=== PATIENT | male | born 1945 | race Hispanic/Latino ===

== ENCOUNTER 2018-07-11 17:35 | Outpatient (CLI) | payer MEDICARE | END 2018-07-11 17:36 | disposition home or self-care (01) | LOC: RAD 17:35 ==

== ENCOUNTER 2018-07-11 19:05 | Inpatient (IN) | payer MEDICARE ==
[2018-07-11 19:37] VITALS: BMI 33.7
[2018-07-11 20:01] LABS: BASO # 0.02 K/mm3 (0.0-2.0); BASO % 0.3 % (0.0-3.0); EOS # 0.1 (0.0-0.7); EOS % 1.6 % (1.5-5.0); HEMOGLOBIN 16.4 g/dL (14.0-18.0); LYMPH # 1.5 (1.2-3.4); LYMPH % 21.5 % (22.0-35.0); MEAN CELL VOLUME 97.1 fl (80.0-105.0); MEAN CORPUSCULAR HEMOGLOBIN 33.7 pg (25.0-35.0); MEAN CORPUSCULAR HGB CONC 34.7 g/dl (31.0-37.0); MEAN PLATELET VOLUME 11.9 fl (7.0-11.0); MONO # 0.5 (0.1-0.6); RBC 4.87 10^6/uL (3.5-6.1); RED CELL DISTRIBUTION WIDTH 14.7 % (11.5-14.5)
[2018-07-11 20:11] LABS: ALB/GLOB RATIO 1.2 (1.1-1.8); ALBUMIN 4.6 g/dL (3.0-4.8); CALCIUM 9.4 mg/dL (8.4-10.5)
[2018-07-11 20:23] LABS: TROPONIN I 0.02 ng/mL
[2018-07-11 20:49] LABS: INR 1.16; PARTIAL THROMBOPLASTIN TIME 31.4 Seconds (26.9-38.3); PROTHROMBIN TIME 12.9 SECONDS (9.4-12.5)
--- NOTE | 2018-07-11 20:52 | ED PDOC ---
Arrival/HPI - General Chief Complaint: Lower Extremity Problem/Injury Time Seen by Provider: 07/11/18 19:17 Historian: Patient - History of Present Illness Narrative History of Present Illness (Text): 07/11/18 19:25 Joesph Vaca is a 72 year old male, whose past medical history includes pancreatic cancer, who presents to the Emergency department sent from [facility] for further evaluation due to a positive right lower leg DVT finding today. Patient reports associated right lower leg swelling. Patient denies any fever, chills, chest pain, shortness of breath, nausea, vomiting, diarrhea, urinary symptoms, back pain, neck pain, headache, dizziness, or any other complaints. Symptom Onset: Gradual Symptom Course: Unchanged Activities at Onset: Light Context: Home Past Medical History - Provider Review Nursing Documentation Reviewed: Yes - Infectious Disease Hx of Infectious Diseases: None - Tetanus Immunization Tetanus Immunization: Up to Date - Cardiac Hx Cardiac Disorders: No - Renal Hx Kidney Stones: Yes - Hematological/Oncological Hx Cancer: Yes (PANCREATIC tx with seeds and radiation dx 2 yrs ago) - Musculoskeletal/Rheumatological Hx Falls: No - Psychiatric Hx Depression: No Hx Emotional Abuse: No Hx Physical Abuse: No Hx Substance Use: No Other/Comment: abusing tranquilizers for back discomfort, as per pt - Surgical History Hx Orthopedic Surgery: Yes (B HIP REPLACEMENT NECK SX) Other/Comment: bilateral hip replacement, cervical neck sx,, lower back sxc l3 l4 l5, sx for scar tissue post lower back sx, right and left hip replacement, sx for stenosis to arms and wrists. bilateral knee replacement - Anesthesia Hx Anesthesia: No - Suicidal Assessment Feels Threatened In Home Enviroment: No Family/Social History - Physician Review Nursing Documentation Reviewed: Yes Family/Social History: Unknown Family HX Smoking Status: Never Smoked Hx Alcohol Use: No Hx Substance Use: No Allergies/Home Meds Allergies/Adverse Reactions: Allergies No Known Allergies Allergy (Verified 07/11/18 19:20) Home Medications: Home Meds Medication Instructions Recorded Confirmed Buprenorphine Hydrochloride/ 0.5 tab PO TID 04/23/13 04/23/13 [Suboxone 8 mg-2 mg] Clonazepam [Klonopin] 1 mg PO TID 04/23/13 04/25/13 Lorazepam [Ativan] 1 mg PO TID 01/06/14 01/06/14 QUEtiapine [SEROquel] 25 mg PO DAILY 04/23/13 04/23/13 Review of Systems - Physician Review All systems were reviewed & negative as marked: Yes - Review of Systems Constitutional: Normal. absent: Fevers Eyes: Normal ENT: Normal Respiratory: Normal. absent: SOB, Cough Cardiovascular: Other (+DVT). absent: Chest Pain Gastrointestinal: Normal. absent: Abdominal Pain, Diarrhea, Nausea, Vomiting Genitourinary Male: Normal. absent: Dysuria, Frequency, Hematuria, Urinary Output Changes Musculoskeletal: Normal. absent: Back Pain, Neck Pain Skin: Normal. absent: Rash Neurological: Normal. absent: Headache, Dizziness Endocrine: Normal Hemo/Lymphatic: Normal Psychiatric: Normal Physical Exam Vital Signs Reviewed: Yes Vital Signs Temp Pulse Resp BP Pulse Ox 07/11/18 19:25 98.3 F 72 18 178/73 H 96 Temperature: Afebrile Blood Pressure: Hypertensive Pulse: Regular Respiratory Rate: Normal Appearance: Positive for: Well-Appearing, Non-Toxic, Comfortable Pain Distress: None Mental Status: Positive for: Alert and Oriented X 3 - Systems Exam Head: Present: Atraumatic, Normocephalic Pupils: Present: PERRL Extroacular Muscles: Present: EOMI Conjunctiva: Present: Normal Mouth: Present: Moist Mucous Membranes Neck: Present: Normal Range of Motion Respiratory/Chest: Present: Clear to Auscultation, Good Air Exchange. No: Respiratory Distress, Accessory Muscle Use Cardiovascular: Present: Regular Rate and Rhythm, Normal S1, S2. No: Murmurs Abdomen: No: Tenderness, Distention, Peritoneal Signs Back: Present: Normal Inspection. No: CVA Tenderness, Midline Tenderness, Paraspinal Tenderness Upper Extremity: Present: Normal Inspection. No: Cyanosis, Edema Lower Extremity: Present: NORMAL PULSES, Normal ROM, Swelling (Right lower leg extremity swelling). No: Edema, Cyanosis, Deformity Neurological: Present: GCS=15, CN II-XII Intact, Speech Normal Skin: Present: Warm, Dry, Normal Color. No: Rashes Psychiatric: Present: Alert, Oriented x 3, Normal Insight, Normal Concentration Medical Decision Making ED Course and Treatment: 07/11/18 19:25 Impression: 72 year old male sent from [place] for positive right leg DVT today. Plan: -- EKG -- Chest X-ray -- Labs, troponin -- Heparin -- Reassess and disposition Prior Visits: Notes and results from previous visits were reviewed. Progress Notes: Reviewed EKG, NSR at 63 bpm. LAD. LBBBB. 07/11/18 20:30 Chest X-ray reviewed, shows no acute processes. 07/11/18 21:[address] Morin, who is aware and agrees with plan. Accepts pt in to hospitalist service. Pt will be admitted to [facility] for lower extremity DVT. vice president of product marketing notified. - Lab Interpretations Lab Results: PT 12.9 SECONDS (9.4-12.5) H 07/11/18 20:17 INR 1.16 07/11/18 20:17 APTT 31.4 Seconds (26.9-38.3) 07/11/18 20:17 Troponin I 0.02 ng/mL D 07/11/18 19:58 Total Bilirubin 1.1 mg/dL (0.2-1.3) 07/11/18 19:58 AST 51 U/L (17-59) 07/11/18 19:58 ALT 29 U/L (7-56) 07/11/18 19:58 Alkaline Phosphatase 64 U/L (38-126) 07/11/18 19:58 Total Protein 8.5 g/dL (5.8-8.3) H 07/11/18 19:58 Albumin 4.6 g/dL (3.0-4.8) 07/11/18 19:58 Globulin 3.9 gm/dL 07/11/18 19:58 Albumin/Globulin Ratio 1.2 (1.1-1.8) 07/11/18 19:58 I have reviewed the lab results: Yes - RAD Interpretation Radiology Orders: 07/11/18 19:26 CHEST PORTABLE [RAD] Stat Granulating Blender: ED Physician - EKG Interpretation Interpreted by ED Physician: Yes Type: 12 lead EKG - Scribe Statement The provider has reviewed the documentation as recorded by the Lisseth Bangura Provider Scribe Attestation: All medical record entries made by the Scribe were at my direction and personally dictated by me. I have reviewed the chart and agree that the record accurately reflects my personal performance of the history, physical exam, medical decision making, and the department course for this patient. I have also personally directed, reviewed, and agree with the discharge instructions and disposition. Disposition/Present on Arrival - Present on Arrival Any Indicators Present on Arrival: No History of DVT/PE: No History of Uncontrolled Diabetes: No Urinary Catheter: No History of Decub. Ulcer: No History Surgical Site Infection Following: None - Disposition Have Diagnosis and Disposition been Completed?: Yes Diagnosis: Deep vein blood clot of right lower extremity Disposition: HOSPITALIZED Disposition Time: 21:20 Condition: FAIR
[2018-07-11] MEDS ORDERED: Heparin25000 units/250ml 1/2NS 25,000 UNITS/250 ML BAG IV PRN (21:16)
[2018-07-11] MEDS ORDERED: BUPRENORPHINE HYDROCHLORIDE PO PRN (23:30)
[2018-07-11] MEDS ORDERED: NALOXONE PO PRN (23:30)
[2018-07-11] MEDS ORDERED: Sodium Chloride 0.9% 1,000 ML IV SCH (23:30)
[2018-07-11] MEDS ORDERED: Enoxaparin 120 mg Syringe SC SCH (23:45)
[2018-07-11] MEDS ORDERED: Iohexol 350 MG/100 ML VIAL ONE (23:52)
--- NOTE | 2018-07-11 23:57 | CP.PCM.HP ---
<Cordell Morin - Last Filed: 07/12/18 19:42> Meds Allergies/Adverse Reactions: Allergies Allergy/AdvReac Type Severity Reaction Status Date / Time No Known Allergies Allergy Verified 07/11/18 19:20 Results - Vital Signs Recent Vital Signs: Last Vital Signs Temp 98.3 F 07/11/18 19:25 Pulse 65 07/11/18 21:54 Resp 18 07/12/18 05:41 BP 146/70 07/11/18 21:54 Pulse Ox 96 07/11/18 21:54 - Labs Result Diagrams: 07/12/18 06:45 07/12/18 06:45 Labs: Laboratory Results - last 24 hr 07/11/18 07/11/18 07/11/18 19:58 19:58 20:17 WBC 7.0 RBC 4.87 Hgb 16.4 Hct 47.3 MCV 97.1 MCH 33.7 MCHC 34.7 RDW 14.7 H Plt Count 94 L MPV 11.9 H Neut % (Auto) 69.6 H Lymph % (Auto) 21.5 L Jun[place] % (Auto) 7.0 H Eos % (Auto) 1.6 Baso % (Auto) 0.3 Lymph # (Auto) 1.5 Jun[place] # (Auto) 0.5 Eos # (Auto) 0.1 Baso # (Auto) 0.02 Absolute Neuts (auto) 4.86 PT 12.9 H INR 1.16 APTT 31.4 Sodium 142 Potassium 5.0 Chloride 108 H Carbon Dioxide 23 Anion Gap 16 BUN 33 H Creatinine 1.5 Est GFR ( Amer) 56 Est GFR (Non-Af Amer) 46 Random Glucose 94 Calcium 9.4 Total Bilirubin 1.1 AST 51 ALT 29 Alkaline Phosphatase 64 Troponin I 0.02 D Total Protein 8.5 H Albumin 4.6 Globulin 3.9 Albumin/Globulin Ratio 1.2 Attending/Attestation - Attestation I have personally seen and examined this patient.: Yes I have fully participated in the care of the patient.: Yes I have reviewed all pertinent clinical information: Yes Notes (Text): Patient seen and examined with the residents, agree with above DVT of the RLE, most likely provoked given his history of malignancy and right knee replacement x2 CTA noted to have PE; does report increasing sob with exertion the past 2 weeks. Started on therapeutic Lovenox, interested in NOAC. Pancreatic cancer in remission, does not remember his oncologist's name Echo to evaluate for possible R heart strain. PT/OT. <Delon Jay - Last Filed: 07/13/18 05:13> History of Present Illness - History of Present Illness History of Present Illness: PGY-1 History and Physical for Dr. Morin Patient is a 72 year old male with PMHx prostate CA s/p chemo and radiation therapy, b/l TKA x2, chronic back pain, who presents sent from office for lower extremity swelling x1 month, found to have RLE DVT on ultrasound. Patient notes noticing increased RLE swelling and redness starting just over one month ago. He denies ever experiencing any pain in either lower extremity. Patient does note some RLE numbness, however he notes this is chronic from complications with one of his right knee replacements resulting in nerve damage, and consequently patient also notes having a foot drop on the right. Patient denies any fevers, chills, or palpitations. Denies any history of DVT/PE, any personal or family history of hypercoagulable disorders. Patient is fairly active, walks regularly on a treadmill and previously ran 8-10 miles/day prior to knee issues. He does state having increased shortness of breath over the past 2-3 weeks, though he attributes this to recent weight gain (approx 20 lbs over last several months) which he attributes to decreased physical activity from knee/back pain. Patient denies any chest pain or pleuritic pain. PMHx: prostate CA s/p chemo and radiation therapy (diagnosed 3 years ago, no longer receiving treatment as he was told CA was cured), b/l TKA x2 (complicated by prosthetic infections bilaterally requiring new knee replacement), chronic back pain (s/p vertebral fusion) Surgical history: TKA b/l x2, multiple vertebral fusions, spinal cord stimulator placement, carpal tunnel release All: NKA Medications: Medications reviewed as per JUN, will confirm Suboxone and Kl[facility] [place] [place] Social hx: Denies alcohol, drug use. Quit smoking 30 years ago. Retired [employer]. Lives in house with . Family hx: Denies family hx of DVT/PE, hypercoagulability, or otherwise PMD: Dr. Donaldson (used to follow with Dr. Lila Galeano who since retired) Psych, Heme/Onc - currently follows with psych for pain management, unsure of name. Unsure name of heme/onc physician. Present on Admission - Present on Admission Any Indicators Present on Admission: No Review of Systems - Constitutional Constitutional: Weight Gain (20 lb weight gain in past 2-3 months). absent: Chills, Fever, Increased Appetite, Weight Loss - EENT Eyes: absent: Change in Vision, Photophobia Nose/Mouth/Throat: Tongue Swelling. absent: Nasal Congestion, Nasal Discharge - Cardiovascular Cardiovascular: absent: Chest Pain, Chest Pain with Activity, Dyspnea, Lightheadedness, Palpitations, Rapid Heart Rate - Respiratory Respiratory: absent: Cough, Dyspnea, Wheezing, Chest Congestion - Gastrointestinal Gastrointestinal: absent: Abdominal Pain, Diarrhea, Nausea, Vomiting - Genitourinary Genitourinary: absent: Dysuria, Flank Pain - Musculoskeletal Musculoskeletal: Back Pain (chornic back pain), Numbness (chronic RLE numbness) - Integumentary Integumentary: Erythema, Swelling (RLE swelling, below knee) - Neurological Neurological: Numbness (chronic RLE numbness 2/2 prior nerve damage). absent: Dizziness, Focal Weakness, Headaches, Paresthesias, Weakness - Psychiatric Psychiatric: absent: Anxiety, Depression - Hematologic/Lymphatic Hematologic: absent: Easy Bleeding, Easy Bruising Past Patient History - Infectious Disease Hx of Infectious Diseases: None - Tetanus Immunizations Tetanus Immunization: Up to Date - Past Social History Smoking Status: Never Smoked - CARDIAC Hx Cardiac Disorders: No - RENAL Hx Kidney Stones: Yes - HEMATOLOGICAL/ONCOLOGICAL Hx Cancer: Yes (PANCREATIC tx with seeds and radiation dx 2 yrs ago) - MUSCULOSKELETAL/RHEUMATOLOGICAL Hx Falls: No - PSYCHIATRIC Hx Depression: No Hx Emotional Abuse: No Hx Physical Abuse: No Hx Substance Use: No Other/Comment: abusing tranquilizers for back discomfort, as per pt - SURGICAL HISTORY Hx Orthopedic Surgery: Yes (B HIP REPLACEMENT NECK SX) Other/Comment: bilateral hip replacement, cervical neck sx,, lower back sxc l3 l4 l5, sx for scar tissue post lower back sx, right and left hip replacement, sx for stenosis to arms and wrists. bilateral knee replacement - ANESTHESIA Hx Anesthesia: No Physical Exam - Constitutional Appears: Non-toxic, No Acute Distress - Head Exam Head Exam: ATRAUMATIC, NORMOCEPHALIC - Eye Exam Eye Exam: EOMI, Normal appearance - ENT Exam ENT Exam: Mucous Membranes Moist - Respiratory Exam Respiratory Exam: Clear to Auscultation Bilateral, NORMAL BREATHING PATTERN. absent: Accessory Muscle Use, Chest Wall Tenderness, Decreased Breath Sounds, Rales, Rhonchi, Wheezes, Respiratory Distress - Cardiovascular Exam Cardiovascular Exam: REGULAR RHYTHM, +S1, +S2 - GI/Abdominal Exam GI & Abdominal Exam: Normal Bowel Sounds, Soft. absent: Distended, Tenderness - Extremities Exam Extremities exam: Positive for: normal capillary refill, pedal pulses present. Negative for: calf tenderness, tenderness Additional comments: RLE edema, erythema, apparent cellulitic changes. Strong DP/PT pulses bilater ally. Vertical surgical incisions over bilateral knees. No significant temperature changes on right, RLE is neurovascularly intact. - Neurological Exam Neurological exam: Alert, CN II-XII Intact, Oriented x3 - Psychiatric Exam Psychiatric exam: Normal Affect, Normal Mood - Skin Skin Exam: Dry, Intact Results - Vital Signs Recent Vital Signs: Last Vital Signs Temp 98.3 F 07/11/18 19:25 Pulse 65 07/11/18 21:54 Resp 14 07/11/18 21:54 BP 146/70 07/11/18 21:54 Pulse Ox 96 07/11/18 21:54 - Labs Result Diagrams: 07/12/18 06:45 07/12/18 06:45 Labs: Laboratory Results - last 24 hr 07/11/18 07/11/18 07/11/18 19:58 19:58 20:17 WBC 7.0 RBC 4.87 Hgb 16.4 Hct 47.3 MCV 97.1 MCH 33.7 MCHC 34.7 RDW 14.7 H Plt Count 94 L MPV 11.9 H Neut % (Auto) 69.6 H Lymph % (Auto) 21.5 L [place] % (Auto) 7.0 H Eos % (Auto) 1.6 Baso % (Auto) 0.3 Lymph # (Auto) 1.5 Jun[place] # (Auto) 0.5 Eos # (Auto) 0.1 Baso # (Auto) 0.02 Absolute Neuts (auto) 4.86 PT 12.9 H INR 1.16 APTT 31.4 Sodium 142 Potassium 5.0 Chloride 108 H Carbon Dioxide 23 Anion Gap 16 BUN 33 H Creatinine 1.5 Est GFR ( Amer) 56 Est GFR (Non-Af Amer) 46 Random Glucose 94 Calcium 9.4 Total Bilirubin 1.1 AST 51 ALT 29 Alkaline Phosphatase 64 Troponin I 0.02 D Total Protein 8.5 H Albumin 4.6 Globulin 3.9 Albumin/Globulin Ratio 1.2 Assessment & Plan - Assessment and Plan (Free Text) Assessment: Right lower extremity DVT/Non-occlusive PE -Lower extremity doppler US 07/11: DVT R common femoral vein -CTA 07/11 - Preliminary read positive for non-occlusive right middle lobe PE. -CXR - f/u read -EKG - NSR at 63 bpm. LAD. LBBB. -Heparin drip started in ED - discontinued for switch to therapeutic lovenox -Lovenox 110mg SC Q12 -NS @ 100cc/hr -A1C/Lipid panel - f/u -INR/PTT WNL Thrombocytopenia -Platelets 94 - Denies ETOH abuse, liver disease -Lovenox still indicated for treatment of DVT -Monitor platelets -Monitor for signs of bleeding Chronic knee and back pain -Home meds resumed --Suboxone 0.5 tab PO TID prn pain --Klonopin 1mg TID prn back pain/anxiety --Day team confirm meds with [facility] in [place] -PT/OT PPx -Lovenox 110mg SC Q12 -SCDs contraindicated for DVT -Regular diet Assessment and plan discussed with Dr. Mikel Jay, PGY-1
[2018-07-12] MEDS: Enoxaparin 120 mg Syringe SC SCH ×2 (00:46→13:31)
[2018-07-12 07:12] LABS: BASO # 0.02 K/mm3 (0.0-2.0); BASO % 0.4 % (0.0-3.0); EOS # 0.1 (0.0-0.7); EOS % 2.3 % (1.5-5.0); HEMOGLOBIN 14.8 g/dL (14.0-18.0); LYMPH # 1.7 (1.2-3.4); LYMPH % 29.5 % (22.0-35.0); MEAN CELL VOLUME 98.2 fl (80.0-105.0); MEAN CORPUSCULAR HGB CONC 33.6 g/dl (31.0-37.0); MEAN PLATELET VOLUME 11.7 fl (7.0-11.0); MONO # 0.4 (0.1-0.6); RBC 4.48 10^6/uL (3.5-6.1); RED CELL DISTRIBUTION WIDTH 14.5 % (11.5-14.5); WHITE BLOOD COUNT 5.7 10^3/uL (4.5-11.0)
[2018-07-12 07:31] LABS: ALB/GLOB RATIO 1.1 (1.1-1.8); ALBUMIN 3.9 g/dL (3.0-4.8)
--- NOTE | 2018-07-12 09:23 | CT ---
Date of service: 07/12/2018 PROCEDURE: CT Chest with contrast (Pulmonary Angiogram) HISTORY: RLE DVT, r/o PE COMPARISON: None available. TECHNIQUE: Axial computed tomography images were obtained of the chest in the pulmonary arterial phase of enhancement. Coronal and sagittal reformatted images were created and reviewed. Intravenous contrast dose: Radiation dose: Total exam DLP = 606.03 mGy-cm. This CT exam was performed using one or more of the following dose reduction techniques: Automated exposure control, adjustment of the mA and/or kV according to patient size, and/or use of iterative reconstruction technique. FINDINGS: PULMONARY ARTERIES: Right middle lobe segmental branch nonocclusive acute pulmonary emboli. AORTA: No acute findings. No thoracic aortic aneurysm. No aortic atherosclerotic calcification or mural plaque present. LUNGS: Bibasilar interstitial changes. PLEURAL SPACES: Unremarkable. No effusion or pneumothorax. HEART: Cardiomegaly.. No significant pericardial effusion. LYMPH NODES: No lymphadenopathy. BONES, CHEST WALL: Unremarkable. No fracture or destructive lesion OTHER FINDINGS: 6 millimeter left renal calculus and 2.5 centimeter left renal cyst. IMPRESSION: Right middle lobe segmental branch nonocclusive acute pulmonary emboli.
--- NOTE | 2018-07-12 09:27 | RAD ---
Date of service: 07/11/2018 HISTORY: dvt rt leg COMPARISON: 04/23/2013 TECHNIQUE: 1 view obtained. FINDINGS: LUNGS: No active pulmonary disease. PLEURA: No significant pleural effusion identified, no pneumothorax apparent. CARDIOVASCULAR: No aortic atherosclerotic calcification present. Normal cardiac size. No pulmonary vascular congestion. OSSEOUS STRUCTURES: No significant abnormalities. VISUALIZED UPPER ABDOMEN: Normal. OTHER FINDINGS: None. IMPRESSION: No active disease.
--- NOTE | 2018-07-12 10:10 | CARD ---
APPROVED REPORT Date of service: 07/11/2018 EKG Measurement Heart [id number] <Conclusion> Normal sinus rhythm Left bundle branch block Somatic Tremors. Abnormal ECG
[2018-07-12] MEDS ORDERED: Barium Sulfate Susp 2.1% w/v, 2.0% w/w 450 mL Bottle PO ONE (12:18)
--- NOTE | 2018-07-12 12:18 | CON ---
DATE OF CONSULTATION: 07/12/2018 PULMONARY CONSULTATION REASON FOR PULMONARY CONSULTATION: Pulmonary embolism. REFERRING PHYSICIAN: Dr. Endy Donaldson. SOURCE OF HISTORY: History is obtained via discussion with Dr. Donaldson. I have also reviewed the chart at length, and discussed the case with the patient at length. HISTORY OF PRESENT ILLNESS: The patient is a 72-year-old male, with past medical history significant for prostate cancer, multiple orthopedic surgeries, chronic back/disk problems, who presents to [facility] with a 4-week history of increasing swelling and redness of his right lower extremity. In addition to the above, the patient also states to dyspnea on exertion for the past 2 weeks. The patient is not short of breath at rest. There is no history of cough or sputum production. There is no history of chest pain, coughing up of blood, or chest pain - brought on with deep respirations. There is no history of temperatures, chills, or infectious exposure. There is no history of night sweats, weight loss, or appetite change prior to the above events. No history of calf pains. No history of syncope or diaphoresis. No history of recent travel or trauma. REVIEW OF SYSTEMS: No history of nausea, vomiting, or diarrhea. No acute urinary symptoms. Rest of the review of systems is negative. ALLERGIES: NO KNOWN ALLERGIES. SOCIAL HISTORY: Positive for former tobacco usage. No alcohol. FAMILY HISTORY: No inheritable diseases. No history of clotting disorders. HOME MEDICATIONS: Include Ativan, and Klonopin. PHYSICAL EXAMINATION: GENERAL: The patient appears comfortable at rest. He is not short of breath. He is not using accessory muscles for breathing. VITAL SIGNS: (Last noted in the computer): Temperature is 98.4, pulse 69, respirations 18, blood pressure 160/71. Oxygen saturation on room air is 95%. HEENT: Normocephalic, atraumatic. No JVD. CARDIOVASCULAR: Positive S1, S2. No S3 gallop. LUNGS: Decreased breath sounds at the bases. No rhonchi. No wheezing. EXTREMITIES: There is mild swelling and erythema to the patient's lower right extremity. There is no swelling in the left lower extremity. There is no cyanosis or clubbing. Calves are nontender to palpation. GASTROINTESTINAL: Abdomen is soft, nontender, and nondistended. Bowel sounds are positive. SKIN: No acute rash. NEUROLOGIC: Exam limited at the present time. PERTINENT LABORATORY DATA: CT scan of the chest was done last night as an angiogram protocol. There is an acute pulmonary embolism noted to the right middle lobe. There are also minimal bibasilar changes. Doppler ultrasound was also done of the right lower extremity. It is positive for right lower extremity deep venous thrombosis. CBC: White count 5.7K, hemoglobin 14.8, hematocrit 44, platelets of 87,000. Complete metabolic profile: Potassium 5.1, BUN 34, creatinine 1.6. Rest of the metabolic profile is within normal limits. IMPRESSION: 1. Right middle lobe pulmonary embolism. 2. Right lower extremity deep venous thrombosis. 3. Mild renal insufficiency. 4. Thrombocytopenia. PLAN: Again, I did discuss the case with Dr. Donaldson. I have also reviewed the chart at length, and discussed the case with the patient at length. The patient presents to [facility] with main complaint of increasing swelling and redness of his right lower extremity for the past 4 weeks. In addition, the patient also complains of increasing dyspnea on exertion for the past 2 weeks. He offers no other pulmonary symptoms. I did review the CT scan of the chest - done as an angiogram protocol. There is an acute pulmonary embolism noted to the right middle lobe. As above, Doppler ultrasound was also positive for deep venous thrombosis. The patient has been placed on therapeutic Lovenox. Consultation with Dr. Sterling (Hematology/Oncology) has been ordered. At this point in time, the patient appears hemodynamically stable. In addition, there is no significant alveolar-arterial gradient. Echocardiogram has been ordered. I will check that when feasible. The patient does state to feeling better this morning, and is clinically improved. Additional pulmonary intervention will be based on the clinical status of the patient. I will discuss the above with the attending physician. Thank you very much for this pulmonary consultation. Damian Benitez MD [facility]
--- NOTE | 2018-07-12 13:48 | CP.PCM.PN ---
<Jd Peralta - Last Filed: 07/12/18 16:15> Subjective - Date & Time of Evaluation Date of Evaluation: 07/12/18 Time of Evaluation: 10:00 - Subjective Subjective: Jd Peralta DO PGY1 - Internal Medicine Boiler Coverer - Hospitalist Progress Note Patient was seen and evaluated at bedside this morning No acute events reported overnight. Patient complains of mild shortness of breath, denies cp, palpitations, abd pain, n/v/d/c, mucosal bleed Findings discussed w/ patient Objective - Vital Signs/Intake and Output Vital Signs (last 24 hours): Temp Pulse Resp BP Pulse Ox 98.4 F 69 18 160/71 H 95 07/11/18 22:40 07/11/18 22:40 07/12/18 05:41 07/11/18 22:40 07/11/18 22:40 Intake and Output: 07/12/18 07/12/18 06:59 18:59 Intake Total 120 Output Total 950 Balance -830 - Medications Medications: Current Medications Acetaminophen (Tylenol 325mg Tab) 650 mg PO Q6 PRN PRN Reason: Fever >100.4 F Clonazepam (Klonopin) 1 mg PO TID PRN PRN Reason: Anxiety Last Admin: 07/12/18 10:06 Dose: 1 mg Enoxaparin Sodium (Lovenox) 110 mg SC Q12H MARGARITA; Protocol Last Admin: 07/12/18 00:46 Dose: 110 mg Escitalopram Oxalate (Lexapro) 20 mg PO DAILY MARGARITA Sodium Chloride (Sodium Chloride 0.9%) 1,000 mls @ 100 mls/hr IV .Q10H MARGARITA Last Admin: 07/12/18 00:44 Dose: 100 mls/hr Non-Formulary Medication (Buprenorphine Hydrochloride/ [Suboxone 8 Mg-2 Mg]) 0.5 tab PO TID PRN PRN Reason: Pain, moderate (4-7) - Labs Labs: 07/12/18 06:45 07/12/18 06:45 PT 12.9 SECONDS (9.4-12.5) H 07/11/18 20:17 INR 1.16 07/11/18 20:17 APTT 31.4 Seconds (26.9-38.3) 07/11/18 20:17 - Constitutional Appears: Well, Non-toxic, No Acute Distress - Head Exam Head Exam: ATRAUMATIC, NORMOCEPHALIC - Eye Exam Eye Exam: EOMI, PERRL - Respiratory Exam Respiratory Exam: Clear to Ausculation Bilateral, NORMAL BREATHING PATTERN - Cardiovascular Exam Cardiovascular Exam: RRR. absent: Tachycardia, Murmur - GI/Abdominal Exam GI & Abdominal Exam: Soft. 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 Admitted for management of DVT/PE. RLE DVT + PE 07/11 Duplex LE Outpt - Confirmed DVT - R Common Femoral Vein 07/11 CT Angio - RML Segmental Branch Acute Nonocclusive PE Given Heparin Bolus in ED Currently on therapeutic Lovenox 110mg Q12 ECHO pending Heme/Onc Consulted Reccs pending Pulmonology Consulted New Onset LBBB Initial Troponin 0.02 Echocardiogram Results pending A1C 5.4 / Lipid panel wnl Thrombocytopenia PLT 87 <--94 No complaints of mucosal bleeding; PT/PTT INR wnl Continue Monitoring PLT Continue Monitoring s/s bleeding JULES vs CKD BUN/Cr 34/1.6 Currently on 100cc/hr IVF HTN No prior history; Continue Monitoring Hx Anxiety/ Mood Disorder Resume home Lexapro 20 Daily Hx Chronic Back Pain Suboxone 8/2 1tab TID Verified w/ [facility] Non-Formulary Here - Patient can bring from home and ID w/ inpt pharmacy GI/DVT PPX GI not indicated Lovenox as above Patient was seen, examined, and discussed with attending physician Dr. Bree Peralta DO PGY1 - Internal Medicine Boiler Coverer - Hospitalist Progress Note <Bree Peralta R - Last Filed: 07/13/18 14:02> Objective - Vital Signs/Intake and Output Vital Signs (last 24 hours): Temp Pulse Resp BP Pulse Ox 97.1 F L 53 L 18 122/70 98 07/13/18 06:00 07/13/18 06:00 07/13/18 06:00 07/13/18 06:00 07/13/18 06:00 Intake and Output: 07/13/18 07/13/18 06:59 18:59 Intake Total 0 Output Total 600 Balance -600 - Medications Medications: Current Medications Acetaminophen (Tylenol 325mg Tab) 650 mg PO Q6 PRN PRN Reason: Fever >100.4 F Clonazepam (Klonopin) 1 mg PO TID PRN PRN Reason: Anxiety Last Admin: 07/13/18 08:03 Dose: 1 mg Enoxaparin Sodium (Lovenox) 110 mg SC Q12H MARGARITA; Protocol Last Admin: 07/13/18 13:29 Dose: 110 mg Escitalopram Oxalate (Lexapro) 20 mg PO DAILY MARGARITA Last Admin: 07/13/18 11:26 Dose: 20 mg Home Med (Home Med) 1 unit SL TID MARGARITA Last Admin: 07/13/18 11:26 Dose: 1 unit - Labs Labs: 07/13/18 06:00 07/13/18 06:00 PT 12.9 SECONDS (9.4-12.5) H 07/11/18 20:17 INR 1.16 07/11/18 20:17 APTT 31.4 Seconds (26.9-38.3) 07/11/18 20:17 Attending/Attestation - Attestation I have personally seen and examined this patient.: Yes I have fully participated in the care of the patient.: Yes I have reviewed all pertinent clinical information, including history, physical exam and plan: Yes Notes (Text): Patient seen and examined by me with resident at approximately 10:30 AM on 07/12/18. Case including HPI, physical exam, and assessment and plan discussed with resident. Agree with above with following additions/corrections. Patient is 72-year-old male with past medical history significant for prostate cancer status post prostatectomy, bilateral knee replacements, and chronic back pain that presented to the emergency room from his doctor's office for right lower extremity DVT found on ultrasound. Patient states he is feeling ok. Complains of low back pain. Denies any shortness of breath while at rest. No pain in his lower extremities. Patient feels the color in his right lower extremity has improved. Patient denies any chest pain or palpitations. No nausea, vomiting, or abdominal pain. No headaches or dizziness. No fevers or chills. No dysuria. Physical exam: General: Awake and alert lying in bed in no acute distress. HEENT: Normocephalic, atraumatic. Extraocular muscles intact, pupils equal and reactive, no scleral icterus. Oropharynx is pink and moist. No pharyngeal erythema or exudate appreciated. Neck is supple. Cardiovascular: Regular rhythm. Normal S1 and S2. No murmurs, rubs, or gallops appreciated Pulmonary: Normal respiratory effort. Decreased breath sounds. No rhonchi, rales or wheezing appreciated. Gastrointestinal: Soft, nondistended. Nontender. Positive bowel sounds all 4 q uadrants. No guarding. Musculoskeletal: Moves all extremities. Bilateral lower extremities with edema, right worse than left. Central nervous system: AAOx3. CN 2-12 grossly intact Dermatologic: Skin warm and dry. Bilateral lower extremities with dry, scaly skin. Venous stasis color changes right lower extremity. Assessment and plan: Patient is 72-year-old male with past medical history significant for prostate cancer status post prostatectomy, bilateral knee replacements, and chronic back pain that presented to the emergency room from his doctor's office for right lower extremity DVT found on ultrasound. 1. Right lower extremity DVT. Right middle lobe nonocclusive acute PE. Pulmonary recommendations appreciated. Pending hem/onc recommendations. Continue therapeutic Lovenox. 2D echo results pending. CTA chest per radiologist showed right middle lobe segmental branch nonocclusive acute pulmonary emboli. Bilateral lower extremity venous dopplers per radiologist showed adherent hypoec hoic acute thrombus in the distal right common femoral vein extending into the right femoral vein origin. 2. Dyspnea. Secondary to #1. Continue with therapeutic lovenox. 2D echo pending. Continue with O2 via nasal cannula as needed. 3. Thrombocytopenia. Appears chronic. Also had thrombocytopenia in 2014. No signs of acute bleeding. Hem/onc consulted, pending recommendations. 4. JULES. ?CKD. Continue with IV fluids. Follow up repeat labs in AM. 5. Chronic back pain. On suboxone at home. Confirmed with patient's pharmacy. Continue home medication 6. Depression and anxiety. Continue Lexapro. Continue Klonopin as needed. 7. DVT prophylaxis. On therapeutic lovenox. Case discussed in detail with the patient regarding current diagnosis and treatment plan. All questions answered.
--- NOTE | 2018-07-12 16:13 | CP.PCM.CON ---
History of Present Illness - History of Present Illness History of Present Illness: Jewel Ragsdalemary PGY2 - Heme/Onc Consult Note for Dr. Sterling Consulted Reason: DVT HPI: 72 year old male with past medical history of prostate cancer s/p seeding and radiation, chronic back pain s/p multiple disc infusions, s/p pain management placement of nerve stimulator s/p 6 months prior, bilateral TKA x 2 (s/p 3 and 4 years) who presented to [facility] with right lower extremity swelling and evidence of right femoral vein DVT. Patient was worked up in ED and found to have CTA showing right middle lobe segmental non-occlusive pulmonary embolus. Patient was placed on therapeutic lovenox. Patient indicates that he has a signficiant history of poor ambulation for the past 6 months to a year secondary to chronic back pain and knee problems for which he has suffered with for some time. Patient indicates he spends up to 10 hours sitting on his couch watching tv with minimal movement during the day. He indicates he is still able to ambulate without assistance of cane or walker. He denies any previous DVT, PE, family history of DVT or PE or personal history of blood disorders. He reports he has not fallen up with his urologist responsible for following his prostate for the past 2 years. Patient reports shortness of breath, fatigue, back and knee pain as well as right lower extremity swelling and pain. He reports history of left foot drop secondary to back pain history. 12 point ROS benign other than mentioned in HPI PMHx: prostate cancer s/p seeding and radiation, b/l TKA x2 (complicated by prosthetic infections bilaterally requiring new knee replacement), chronic back pain (s/p vertebral fusion) Surgical history: TKA b/l x2, multiple vertebral fusions, spinal cord stimulator placement, carpal tunnel release All: NKDA Medications: MAR reviewed SOCHX: Denies alcohol, drug use. Quit smoking 30 years ago. 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 Lives in house with in [facility]. FMH: Denies family hx of DVT/PE, hypercoagulability, or otherwise PMD: Dr. Endy Donaldson Review of Systems - Review of Systems All systems: reviewed and no additional remarkable complaints except (as mentioned in HPI) Past Patient History - Infectious Disease Hx of Infectious Diseases: None - Tetanus Immunizations Tetanus Immunization: Up to Date - Past Social History Smoking Status: Never Smoked - CARDIAC Hx Cardiac Disorders: No - PULMONARY Hx Respiratory Disorders: No - NEUROLOGICAL Hx Neurological Disorder: No - HEENT Hx HEENT Problems: No - RENAL Hx Kidney Stones: Yes - ENDOCRINE/METABOLIC Hx Endocrine Disorders: No - HEMATOLOGICAL/ONCOLOGICAL Hx Cancer: Yes (PANCREATIC tx with seeds and radiation dx 2 yrs ago) - INTEGUMENTARY Hx Dermatological Problems: No - MUSCULOSKELETAL/RHEUMATOLOGICAL Hx Falls: No - GASTROINTESTINAL Hx Gastrointestinal Disorders: No - GENITOURINARY/GYNECOLOGICAL Hx Genitourinary Disorders: No - PSYCHIATRIC Hx Depression: No Hx Emotional Abuse: No Hx Physical Abuse: No Hx Substance Use: No Other/Comment: abusing tranquilizers for back discomfort, as per pt - SURGICAL HISTORY Hx Orthopedic Surgery: Yes (B HIP REPLACEMENT NECK SX) Other/Comment: bilateral hip replacement, cervical neck sx,, lower back sxc l3 l4 l5, sx for scar tissue post lower back sx, right and left hip replacement, sx for stenosis to arms and wrists. bilateral knee replacement - ANESTHESIA Hx Anesthesia: No Meds Allergies/Adverse Reactions: Allergies Allergy/AdvReac Type Severity Reaction Status Date / Time No Known Allergies Allergy Verified 07/11/18 19:20 - Medications Medications: Current Medications Acetaminophen (Tylenol 325mg Tab) 650 mg PO Q6 PRN PRN Reason: Fever >100.4 F Clonazepam (Klonopin) 1 mg PO TID PRN PRN Reason: Anxiety Last Admin: 07/12/18 10:06 Dose: 1 mg Enoxaparin Sodium (Lovenox) 110 mg SC Q12H MARGARITA; Protocol Last Admin: 07/12/18 13:31 Dose: 110 mg Escitalopram Oxalate (Lexapro) 20 mg PO DAILY MARGARITA Last Admin: 07/12/18 13:31 Dose: 20 mg Sodium Chloride (Sodium Chloride 0.9%) 1,000 mls @ 100 mls/hr IV .Q10H MARGARITA Last Admin: 07/12/18 00:44 Dose: 100 mls/hr Non-Formulary Medication (Buprenorphine Hydrochloride/ [Suboxone 8 Mg-2 Mg]) 0.5 tab PO TID PRN PRN Reason: Pain, moderate (4-7) Physical Exam - Constitutional Appears: No Acute Distress - Head Exam Head Exam: ATRAUMATIC, NORMOCEPHALIC - Eye Exam Eye Exam: EOMI, PERRL - ENT Exam ENT Exam: Mucous Membranes Moist - Neck Exam Neck exam: Positive for: Full Rom - Respiratory Exam Respiratory Exam: Clear to Auscultation Bilateral, NORMAL BREATHING PATTERN - Cardiovascular Exam Cardiovascular Exam: REGULAR RHYTHM, +S1, +S2 - GI/Abdominal Exam GI & Abdominal Exam: Normal Bowel Sounds, Soft. absent: Distended, Firm, Guarding - Extremities Exam Extremities exam: Positive for: calf tenderness (right lower exrtemity ) Additional comments: right lower extremity swelling with mild erythema bilateral surgical scars on anterior knees - Back Exam Back exam: paraspinal tenderness, tenderness - Neurological Exam Neurological exam: Alert, CN II-XII Intact, Oriented x3 Additional comments: motor and sensory grossly intact - Psychiatric Exam Psychiatric exam: Normal Affect, Normal Mood - Skin Skin Exam: Dry, Warm Results - Vital Signs Recent Vital Signs: Last Vital Signs Temp 97.3 F L 07/12/18 06:00 Pulse 57 L 07/12/18 06:00 Resp 198 H 07/12/18 06:00 BP 135/82 07/12/18 06:00 Pulse Ox 97 07/12/18 06:00 - Labs Result Diagrams: 07/12/18 06:45 07/12/18 06:45 Labs: Laboratory Results - last 24 hr 07/11/18 07/11/18 07/11/18 19:58 19:58 20:17 WBC 7.0 RBC 4.87 Hgb 16.4 Hct 47.3 MCV 97.1 MCH 33.7 MCHC 34.7 RDW 14.7 H Plt Count 94 L MPV 11.9 H Neut % (Auto) 69.6 H Lymph % (Auto) 21.5 L [place] % (Auto) 7.0 H Eos % (Auto) 1.6 Baso % (Auto) 0.3 Lymph # (Auto) 1.5 [place] # (Auto) 0.5 Eos # (Auto) 0.1 Baso # (Auto) 0.02 Absolute Neuts (auto) 4.86 PT 12.9 H INR 1.16 APTT 31.4 Sodium 142 Potassium 5.0 Chloride 108 H Carbon Dioxide 23 Anion Gap 16 BUN 33 H Creatinine 1.5 Est GFR ( Amer) 56 Est GFR (Non-Af Amer) 46 Random Glucose 94 Hemoglobin A1c Calcium 9.4 Total Bilirubin 1.1 AST 51 ALT 29 Alkaline Phosphatase 64 Troponin I 0.02 D Total Protein 8.5 H Albumin 4.6 Globulin 3.9 Albumin/Globulin Ratio 1.2 Triglycerides Cholesterol LDL Cholesterol Direct HDL Cholesterol Carcinoembryonic Ag 07/12/18 07/12/18 07/12/18 06:45 06:45 06:45 WBC 5.7 RBC 4.48 Hgb 14.8 Hct 44.0 MCV 98.2 MCH 33.0 MCHC 33.6 RDW 14.5 Plt Count 87 L MPV 11.7 H Neut % (Auto) 60.8 Lymph % (Auto) 29.5 [place] % (Auto) 7.0 H Eos % (Auto) 2.3 Baso % (Auto) 0.4 Lymph # (Auto) 1.7 [place] # (Auto) 0.4 Eos # (Auto) 0.1 Baso # (Auto) 0.02 Absolute Neuts (auto) 3.46 PT INR APTT Sodium 142 Potassium 5.1 H Chloride 106 Carbon Dioxide 27 Anion Gap 14 BUN 34 H Creatinine 1.6 H Est GFR ( Amer) 52 Est GFR (Non-Af Amer) 43 Random Glucose 89 Hemoglobin A1c 5.4 Calcium 9.0 Total Bilirubin 1.2 AST 44 ALT 31 Alkaline Phosphatase 56 Troponin I Total Protein 7.4 Albumin 3.9 Globulin 3.5 Albumin/Globulin Ratio 1.1 Triglycerides 82 Cholesterol 153 LDL Cholesterol Direct 108 HDL Cholesterol 27 L Carcinoembryonic Ag 07/12/18 12:00 WBC RBC Hgb Hct MCV MCH MCHC RDW Plt Count MPV Neut % (Auto) Lymph % (Auto) [place] % (Auto) Eos % (Auto) Baso % (Auto) Lymph # (Auto) [place] # (Auto) Eos # (Auto) Baso # (Auto) Absolute Neuts (auto) PT INR APTT Sodium Potassium Chloride Carbon Dioxide Anion Gap BUN Creatinine Est GFR ( Amer) Est GFR (Non-Af Amer) Random Glucose Hemoglobin A1c Calcium Total Bilirubin AST ALT Alkaline Phosphatase Troponin I Total Protein Albumin Globulin Albumin/Globulin Ratio Triglycerides Cholesterol LDL Cholesterol Direct HDL Cholesterol Carcinoembryonic Ag 1.5 Assessment & Plan - Assessment and Plan (Free Text) Assessment: 72 year old male with past medical history of prostate cancer s/p seeding and radiation, chronic back pain s/p multiple disc infusions, s/p pain management placement of nerve stimulator s/p 6 months prior, bilateral TKA x 2 (s/p 3 and 4 years) with presented right femoral vein DVT as evidence by US and right mid lobe segmental branch non-occlusive pulmonary embolus as evidence of CTA. Plan: Provoked DVT in the setting of immobilization secondary to chronic back pain Right middle lobe segmental non-occlusive pulmonary embolus Hx of Prostate Cancer - DVT located in right femoral vein as evidence by LE US - Right middle lobe segmental non-occlusive pulmonary embolus as evidence by CTA - No prior history of DVT/PE - Follow up hypercoaguable work up - Thrombus likely secondary to immobilization secondary to chronic back pain, however further and complete investigation for other etiologies should be done. Patient to have blood markers for PSA, CEA, CA19-9 as well as abdomen and pelvis CT with oral and IV contrast for further investigation of extent of right femoral vein clot and possible clot burden as well as for enlarged lymph nodes in setting of history of cancer. - IR consultation with Dr. Anton Galeano for further investigation of clot burden and possibility for IVC filter placement with consideration of PE and DVT and patient likely continued higher than normal levels of immobilization - Continue Lovenox theraputic levels BID with recommendations to transition to Xa inhibitor for likely 3-4 months pending IR consultation - Patient to likely need follow up Lower extremity US and CTA after completion of 3 months of anti-coagulation therapy
--- NOTE | 2018-07-12 18:44 | CARD ---
APPROVED REPORT Date of service: 07/12/2018 EKG Measurement Heart [id number] <Conclusion> Normal sinus rhythm Left axis deviation Left ventricular hypertrophy with QRS widening Cannot rule out Septal infarct, age undetermined Possible Lateral infarct, age undetermined Abnormal ECG
--- NOTE | 2018-07-12 19:06 | CT ---
Date of service: 07/12/2018 PROCEDURE: CT Abdomen and Pelvis without intravenous contrast HISTORY: evaluation lymph nodes vs malignancy etiologies COMPARISON: Two view over question TECHNIQUE: Without contrast.. Contrast dose: 0 Radiation dose: Total exam DLP = 1144.19 mGy-cm. This CT exam was performed using one or more of the following dose reduction techniques: Automated exposure control, adjustment of the mA and/or kV according to patient size, and/or use of iterative reconstruction technique. FINDINGS: LOWER THORAX: Nonspecific interstitial changes right lower lobe. LIVER: Unremarkable. No gross lesion or ductal dilatation. GALLBLADDER AND BILE DUCTS: Unremarkable. PANCREAS: Unremarkable. No gross lesion or ductal dilatation. SPLEEN: Mild splenomegaly. The spleen measures approximately 15.0 cm in greatest dimension. No mass. ADRENALS: Unremarkable. No mass. KIDNEYS AND URETERS: 5.1 cm mid left renal cyst. 9 mm left upper pole renal calculus. 4 mm left upper pole renal calculus. There are 2 calculi in the most proximal left ureter, 11-12 mm in diameter each. There is a 3 mm mid right renal calculus. No hydronephrosis. VASCULATURE: Unremarkable. No aortic aneurysm. There is atherosclerotic calcification of the abdominal aorta. BOWEL: Unremarkable. No obstruction. No gross mural thickening. APPENDIX: Not identified. No secondary findings PERITONEUM: Unremarkable. No free fluid. No free air. Davison for penile pump seen in lower right hemipelvis. LYMPH NODES: Few small pelvic lymph nodes bilateral, nonspecific. No retroperitoneal. BLADDER: Nondistended REPRODUCTIVE: Radiation seed implants in prostate bed. BONES: Status post posterior fusion L3 through L5. Spinal stimulator noted. Bilateral hip prostheses. OTHER FINDINGS: None. IMPRESSION: No evidence of significant lymphadenopathy. Bilateral renal calculi. Left upper pole low-density renal mass, likely cortical cyst. No acute abnormality. Nonspecific interstitial changes in right lower lobe.
--- NOTE | 2018-07-12 19:07 | CARD ---
APPROVED REPORT Date of service: 07/12/2018 EXAM: Two-dimensional and M-mode echocardiogram with Doppler and color Doppler. INDICATION Pulmonary Embolism 2D DIMENSIONS Left Atrium (2D)3.9 (1.6-4.0cm)IVSd1.2 (0.7-1.1cm) LVDd5.4 (3.9-5.9cm)PWd0.9 (0.7-1.1cm) LVDs4.1 (2.5-4.0cm)FS (%) 24.1 % LVEF (%)47.6 (>50%) M-Mode DIMENSIONS Aortic Root3.30 (2.2-3.7cm)Aortic Cusp Exc.1.10 (1.5-2.0cm) Aortic Valve AoV Peak Jobgstsj350.0cm/Rasheeda Peak GR.9mmHg Mitral Valve MV E Ieatwone67.7cm/sMV A Gnbqniqh246.0cm/sE/A ratio0.8 TDI E/Lateral E'0.0E/Medial E'0.0 LEFT VENTRICLE The left ventricle is normal size. There is borderline concentric left ventricular hypertrophy. The systolic function is mildly impaired.EF-45% There is mild global hypokinesis of the left ventricle. Transmitral Doppler flow pattern is Grade III-reversible restrictive diastolic dysfunction. No left ventricle thrombus noted on this study. There is no ventricular septal defect visualized. There is no left ventricular aneurysm. There is no mass noted in the left ventricle. RIGHT VENTRICLE The right ventricle is normal size. There is normal right ventricular wall thickness. The right ventricular systolic function is normal. ATRIA The left atrium size is normal. The right atrium size is normal. The interatrial septum is intact with no evidence for an atrial septal defect. AORTIC VALVE The aortic valve is not well visualized. The aortic valve is mildly to moderately thickened. There is trace aortic regurgitation. There is no aortic valvular stenosis. There is no aortic valvular vegetation. MITRAL VALVE The mitral valve is thickened but opens well. Mitral regurgitation is trace. There is no mitral valve stenosis. There is no evidence of mitral valve prolapse. TRICUSPID VALVE The tricuspid valve leaflets are thickened , but open well. There is trace tricuspid regurgitation. There is no tricuspid valve stenosis. There is no tricuspid valve prolapse or vegetation. PULMONIC VALVE The pulmonic valve is not well visualized. GREAT VESSELS The aortic root is normal in size. The ascending aorta is normal in size. The pulmonary artery is normal. The IVC is normal in size and collapses >50% with inspiration. PERICARDIAL EFFUSION There is no pleural effusion. There is no pericardial effusion. <Conclusion> The left ventricle is normal size. There is borderline concentric left ventricular hypertrophy. The systolic function is mildly impaired.EF-45% There is trace aortic regurgitation. Mitral regurgitation is trace. There is trace tricuspid regurgitation. The IVC is normal in size and collapses >50% with inspiration. There is no pericardial effusion. No vegatation or thrombus noted.
[2018-07-13] MEDS: Enoxaparin 120 mg Syringe SC SCH ×2 (00:04→13:29)
[2018-07-13 06:52] LABS: BASO # 0.02 K/mm3 (0.0-2.0); BASO % 0.4 % (0.0-3.0); EOS # 0.2 (0.0-0.7); EOS % 3.2 % (1.5-5.0); HEMOGLOBIN 14.5 g/dL (14.0-18.0); LYMPH # 1.7 (1.2-3.4); LYMPH % 33.1 % (22.0-35.0); MEAN CORPUSCULAR HEMOGLOBIN 32.6 pg (25.0-35.0); MEAN CORPUSCULAR HGB CONC 34.7 g/dl (31.0-37.0); MEAN PLATELET VOLUME 10.8 fl (7.0-11.0); MONO # 0.4 (0.1-0.6); MONO % 8.8 % (1.0-6.0); RBC 4.45 10^6/uL (3.5-6.1); RED CELL DISTRIBUTION WIDTH 14.4 % (11.5-14.5)
[2018-07-13 07:13] LABS: ALB/GLOB RATIO 1.1 (1.1-1.8); ALBUMIN 3.8 g/dL (3.0-4.8); CALCIUM 8.9 mg/dL (8.4-10.5)
[2018-07-13 08:47] LABS: MEAN CELL VOLUME 98.9 fl (80.0-105.0)
[2018-07-13] MEDS: SUBOXONE SL SCH ×4 (09:00→18:07)
[2018-07-13] MEDS ORDERED: SUBOXONE SL SCH (10:00)
--- NOTE | 2018-07-13 10:29 | CP.PCM.PN ---
Subjective - Date & Time of Evaluation Date of Evaluation: 07/13/18 Time of Evaluation: 08:00 - Subjective Subjective: Jewel Fairbanks PGY2 - Heme/Onc Progress Note Patient seen and examined this AM. No acute events reported overnight. Patient indicates breathing status is improved from admission. Denies chest pain, abominal pain, increased swelling or pain in lower extremities. Objective - Vital Signs/Intake and Output Vital Signs (last 24 hours): Temp Pulse Resp BP Pulse Ox 97.1 F L 53 L 18 122/70 98 07/13/18 06:00 07/13/18 06:00 07/13/18 06:00 07/13/18 06:00 07/13/18 06:00 Intake and Output: 07/13/18 07/13/18 06:59 18:59 Intake Total 0 Output Total 600 Balance -600 - Medications Medications: Current Medications Acetaminophen (Tylenol 325mg Tab) 650 mg PO Q6 PRN PRN Reason: Fever >100.4 F Clonazepam (Klonopin) 1 mg PO TID PRN PRN Reason: Anxiety Last Admin: 07/13/18 08:03 Dose: 1 mg Enoxaparin Sodium (Lovenox) 110 mg SC Q12H [facility]; Protocol Last Admin: 07/13/18 00:04 Dose: 110 mg Escitalopram Oxalate (Lexapro) 20 mg PO DAILY [facility] Last Admin: 07/12/18 13:31 Dose: 20 mg Home Med (Home Med) 1 unit SL TID [facility] Last Admin: 07/13/18 09:00 Dose: Not Given Sodium Chloride (Sodium Chloride 0.9%) 1,000 mls @ 100 mls/hr IV .Q10H [facility] Last Admin: 07/12/18 00:44 Dose: 100 mls/hr - Labs Labs: 07/13/18 06:00 07/13/18 06:00 PT 12.9 SECONDS (9.4-12.5) H 07/11/18 20:17 INR 1.16 07/11/18 20:17 APTT 31.4 Seconds (26.9-38.3) 07/11/18 20:17 - Constitutional Appears: No Acute Distress - Head Exam Head Exam: ATRAUMATIC, NORMOCEPHALIC - Eye Exam Eye Exam: EOMI, PERRL - ENT Exam ENT Exam: Mucous Membranes Moist - Neck Exam Neck Exam: Full ROM - Respiratory Exam Respiratory Exam: Clear to Ausculation Bilateral, NORMAL BREATHING PATTERN - Cardiovascular Exam Cardiovascular Exam: REGULAR RHYTHM, +S1, +S2 - GI/Abdominal Exam GI & Abdominal Exam: Soft, Normal Bowel Sounds. absent: Guarding, Rigid - Extremities Exam Additional comments: right lower extremity swelling - Neurological Exam Neurological Exam: Alert, Awake, Oriented x3 Additional comments: motor and sensory grossly intact - Psychiatric Exam Psychiatric exam: Normal Affect, Normal Mood - Skin Skin Exam: Dry, Warm Additional comments: bilateral surgical scars anterior knees bilaterally Assessment and Plan - Assessment and Plan (Free Text) Assessment: 72 year old male with past medical history of prostate cancer s/p seeding and radiation, chronic back pain s/p multiple disc infusions, s/p pain management placement of nerve stimulator s/p 6 months prior, bilateral TKA x 2 (s/p 3 and 4 years) with presented right femoral vein DVT as evidence by US and right mid lobe segmental branch non-occlusive pulmonary embolus as evidence of CTA. Plan: Provoked DVT in the setting of immobilization secondary to chronic back pain Right middle lobe segmental non-occlusive pulmonary embolus Thrombocytpoenia Hx of Prostate Cancer - DVT located in right femoral vein as evidence by LE US - Right middle lobe segmental non-occlusive pulmonary embolus as evidence by CTA - No prior history of DVT/PE - Follow up hypercoaguable work up, less suspicious considering previous radiation therapy as possible source for damage of veins in conjunction with increased limited mobility for extended period of time (6-12 months) - Abd/Pelvis CT with IV and PO contrast ordered yesterday, only PO contrast conducted. Imaging showing limited evidence of femoral vein clot but does show no evidence of lymphadenopathy, bilateral renal calcui, left upper pole low density renal mass likely cystic in nature, absent spleenomegaly - IR not recommending IVC filter placement, will assess patient today for possible lysis of femoral vein clot. Follow up recommendations -Thrombocytopenia chronic in nature, follow up peripheral smear, coag panel nor mal no history of uncontrolled bleeding - CEA, [id number] wnl - Recommend transition to Xa inhibitor for likely 3-4 months pending IR consultation - Patient to likely need follow up Lower extremity US and CTA after completion of 3 months of anti-coagulation therapy -Further management per primary team -Further recommendations per Dr. Sterling
[2018-07-13 11:19] LABS: PLATELET COUNT MANUAL 91 K/mm3 (120-450)
--- NOTE | 2018-07-13 12:08 | PN ---
DATE: 07/13/2018 SUBJECTIVE: The patient appears comfortable at rest. He is not short of breath. PHYSICAL EXAMINATION: VITAL SIGNS (Last noted in the computer): Temperature 97.3, pulse 57, respirations 18, blood pressure 135/82. Oxygen saturation on room air - 97%. HEENT: Normocephalic, atraumatic. No JVD. CARDIOVASCULAR: Positive S1, S2. No S3 gallop. LUNGS: Decreased breath sounds at the bases. No rhonchi. No wheezing. EXTREMITIES: There is less swelling and less erythema to the patient's right lower extremity. There is no swelling in the left lower extremity. There is no cyanosis or clubbing. Calves are nontender to palpation. GASTROINTESTINAL: Abdomen is soft, nontender and nondistended. Bowel sounds are positive. SKIN: No acute rash. NEUROLOGIC: Exam limited at the present time. PERTINENT LABORATORY DATA: Echocardiogram was done yesterday and reviewed. The right ventricle is normal in size and function. There is only trace tricuspid regurgitation. The right ventricular systolic pressure is not noted. The systolic function is mildly impaired - ejection fraction 45%. There is also mild global hypokinesis of the left ventricle. IMPRESSION: 1. Right middle lobe pulmonary embolism. 2. Right lower extremity deep venous thrombosis. 3. Mild renal insufficiency. 4. Thrombocytopenia. 5. Mild cardiomyopathy. PLAN: The patient appears comfortable this morning. He is not short of breath at rest. He does state to feeling much better overall. There is certainly less swelling of his right lower extremity. On physical exam, there is no significant bronchospasm noted. In addition, there is no significant alveolar-arterial gradient. The patient remains on therapeutic Lovenox. Input by Oncology/Hematology is noted. Hypercoagulable workup is in progress. Repeat a.m. labs are pending. Consultations with Cardiology and Interventional Radiology are also ordered. Clinical status of the patient is certainly improved - compared to the initial presentation. However, given the above, the future status/prognosis for this patient does remain guarded. I will discuss the above with the medical team this morning. Damian Benitez MD [facility]
--- NOTE | 2018-07-13 14:19 | CP.PCM.PN ---
<Jd Peralta - Last Filed: 07/13/18 14:43> Subjective - Date & Time of Evaluation Date of Evaluation: 07/13/18 Time of Evaluation: 14:13 - Subjective Subjective: Jd Peralta DO PGY1 - Internal Medicine Sample Puller -Hospitalist Progress NOte Patient was seen and evaluated at bedside this morning. No acute events reported overnight. Patient feeling well this morning, no palpitations, chest pain, abd pain, n/v/d/c, abnormal bleeding. Patient reports he is able to ambulate around the floor w/o difficulty or shortness of breath. Objective - Vital Signs/Intake and Output Vital Signs (last 24 hours): Temp Pulse Resp BP Pulse Ox 97.1 F L 53 L 18 122/70 98 07/13/18 06:00 07/13/18 06:00 07/13/18 06:00 07/13/18 06:00 07/13/18 06:00 Intake and Output: 07/13/18 07/13/18 06:59 18:59 Intake Total 0 Output Total 600 Balance -600 - Medications Medications: Current Medications Acetaminophen (Tylenol 325mg Tab) 650 mg PO Q6 PRN PRN Reason: Fever >100.4 F Clonazepam (Klonopin) 1 mg PO TID PRN PRN Reason: Anxiety Last Admin: 07/13/18 08:03 Dose: 1 mg Enoxaparin Sodium (Lovenox) 110 mg SC Q12H [facility]; Protocol Last Admin: 07/13/18 13:29 Dose: 110 mg Escitalopram Oxalate (Lexapro) 20 mg PO DAILY [facility] Last Admin: 07/13/18 11:26 Dose: 20 mg Home Med (Home Med) 1 unit SL TID [facility] Last Admin: 07/13/18 11:26 Dose: 1 unit - Labs Labs: 07/13/18 06:00 07/13/18 06:00 PT 12.9 SECONDS (9.4-12.5) H 07/11/18 20:17 INR 1.16 07/11/18 20:17 APTT 31.4 Seconds (26.9-38.3) 07/11/18 20:17 - Constitutional Appears: Well, Non-toxic, No Acute Distress - Head Exam Head Exam: ATRAUMATIC, NORMOCEPHALIC - Eye Exam Eye Exam: EOMI, PERRL - Respiratory Exam Respiratory Exam: RLL Crackles - Cardiovascular Exam Cardiovascular Exam: RRR. absent: Tachycardia, Murmur - GI/Abdominal Exam GI & Abdominal Exam: Soft. absent: Tenderness - Extremities Exam Additional comments: RLE Erythema + Edema Chronic venostatic dermatitis BL Both legs w/ 2+ pedal pulses Assessment and Plan - Assessment and Plan (Free Text) Assessment: 72M w/ PMH Prostate CA s/p chemorad in remission, Chronic Back Pain, Mood Disorder, presented to [facility] ED 07/12 w/ complaints of worsening RLE erythema / edema. Admitted for management of DVT/PE. RLE DVT + PE 07/11 Duplex LE Outpt - Confirmed DVT - R Common Femoral Vein 07/11 CT Angio - RML Segmental Branch Acute Nonocclusive PE Given Heparin Bolus in ED ; Currently on therapeutic Lovenox 110mg Q12 IR consultation for IVC Filter placement as per Heme/Onc - Patient not a candidate Can consider Factor XA inhibitor as per Heme/Onc Hypercoaguability work up per Heme/Onc Heme/Onc Following Pulmonology Following HFrEF + HFpEF: 07/12 Echocardiogram - EF 45% + Grade III Reversible restrictive diastolic dysfunction Cardiology Consulted, Further reccs pending Initial EKG w/ LBBB Repeat EKG w/o LBBB Initial Troponin 0.02 A1C 5.4 / Lipid panel wnl Thrombocytopenia PLT 80 < 87 Manual PLT - 91 No complaints of mucosal bleeding; PT/PTT INR wnl Continue Monitoring PLT Continue Monitoring s/s bleeding Heme/Onc Following Hx Prostate Ca: 07/12 CTAP w/ PO CON - No comment of intrabdominal mass/ local malignancy per radiology read CEA, CA 19-9 - wnl PSA unable to calculate CKD BUN/Cr continues to be elevated despite IVF Avoid nephrotoxic rx HTN No prior history; Continue Monitoring Cardiology Following Hx Anxiety/ Mood Disorder C/w home Lexapro 20 Daily C/w home Klonopin 1mg TID PRN Hx Chronic Back Pain Suboxone 8/2 1tab TID Verified w/ [facility] Non-Formulary Here -Patient brought from home GI/DVT PPX GI not indicated Lovenox as above Patient was seen, examined, and discussed with attending physician Dr. Bree Peralta DO PGY1 - Internal Medicine Sample Puller - Hospitalist Progress Note <Bree Peralta R - Last Filed: 07/13/18 18:48> Objective - Vital Signs/Intake and Output Vital Signs (last 24 hours): Temp Pulse Resp BP Pulse Ox 97.1 F L 53 L 18 122/70 98 07/13/18 06:00 07/13/18 06:00 07/13/18 06:00 07/13/18 06:00 07/13/18 06:00 Intake and Output: 07/13/18 07/13/18 06:59 18:59 Intake Total 0 Output Total 600 Balance -600 - Medications Medications: Current Medications Acetaminophen (Tylenol 325mg Tab) 650 mg PO Q6 PRN PRN Reason: Fever >100.4 F Apixaban (Eliquis) 5 mg PO BID [facility]; Protocol Clonazepam (Klonopin) 1 mg PO TID PRN PRN Reason: Anxiety Last Admin: 07/13/18 08:03 Dose: 1 mg Escitalopram Oxalate (Lexapro) 20 mg PO DAILY [facility] Last Admin: 07/13/18 11:26 Dose: 20 mg Home Med (Home Med) 1 unit SL TID [facility] Last Admin: 07/13/18 18:07 Dose: 1 unit - Labs Labs: 07/13/18 06:00 07/13/18 06:00 PT 12.9 SECONDS (9.4-12.5) H 07/11/18 20:17 INR 1.16 07/11/18 20:17 APTT 31.4 Seconds (26.9-38.3) 07/11/18 20:17 Attending/Attestation - Attestation I have personally seen and examined this patient.: Yes I have fully participated in the care of the patient.: Yes I have reviewed all pertinent clinical information, including history, physical exam and plan: Yes Notes (Text): Patient seen and examined by me with resident at approximately 10:10 AM on 07/13/18. Case including HPI, physical exam, and assessment and plan discussed with resident. Agree with above with following additions/corrections. Patient is 72-year-old male with past medical history significant for prostate cancer status post prostatectomy, bilateral knee replacements, and chronic back pain that presented to the emergency room from his doctor's office for right lower extremity DVT found on ultrasound. Patient states he is feeling better today. States he has been ambulating this morning without feeling short of breath. Also denies any pain in his lower extremities. States that the color in his right lower extremity is much improved. Improved low back pain today. Patient denies any chest pain or palpitations. No nausea, vomiting, or abdominal pain. No headaches or dizziness. No fevers or chills. No dysuria. Physical exam: General: Awake and alert lying in bed in no acute distress. HEENT: Normocephalic, atraumatic. Extraocular muscles intact, pupils equal and reactive, no scleral icterus. Oropharynx is pink and moist. No pharyngeal erythema or exudate appreciated. Neck is supple. Cardiovascular: Regular rhythm. Normal S1 and S2. No murmurs, rubs, or gallops appreciated Pulmonary: Normal respiratory effort. Decreased breath sounds at bases. No rhonchi, rales or wheezing appreciated. Gastrointestinal: Soft, nondistended. Nontender. Positive bowel sounds all 4 quadrants. No guarding. Musculoskeletal: Moves all extremities. Bilateral lower extremities with edema, right worse than left, improved today Central nervous system: AAOx3. CN 2-12 grossly inact Dermatologic: Skin warm and dry. Bilateral lower extremities with dry, scaly skin. Venous stasis color changes right lower extremity. Assessment and plan: Patient is 72-year-old male with past medical history significant for prostate cancer status post prostatectomy, bilateral knee replacements, and chronic back pain that presented to the emergency room from his doctor's office for right lower extremity DVT found on ultrasound. 1. Right lower extremity DVT. Right middle lobe nonocclusive acute PE. Pulmonary recommendations appreciated. Hem/onc recommendations appreciated. Started on Eliquis per hem/onc and IR. Seen by IR. Likely provoked from immobility. CT abd/pelvis per radiologist showed no evidence of significant lymphadenopathy, bilateral renal calculi, left upper pole low density renal mass likely cortical cyst, no acute abnormality, nonspecific interstitial changes in the right lower lobe. 2D echo per plastic jig and fixture builder showed left ventricle is normal size, boderline concentric left ventricular hypertrophy, systolic function is mildly impaired with EF of 45%, trace aortic regurgitation, mitral regurgitation is trace, trace tricuspid regurgitation, IVC is normal in size and collapses, no pericardial effusion, no vegetation or thrombus noted, transmitral doppler flow pattern is Grade III reversible restrictive diastolic dysfunction. CTA chest per radiologist showed right middle lobe segmental branch nonocclusive acute pulmonary emboli. Bilateral lower extremity venous dopplers per radiologist showed adherent hypoechoic acute thrombus in the distal right common femoral vein extending into the right femoral vein origin. 2. Dyspnea. Secondary to #1 as well as combined CHF (not in acute exacerbation). Improved. Started on Eliquis. 2D echo as above. Continue with O2 via nasal cannula as needed. 3. Combined diastolic and systolic. Appears compensated. Cardiology consulted, follow up recommendations. 4. Thrombocytopenia. Appears chronic. No signs of acute bleeding. Hem/onc consulted, recommendations appreciated. 5. CKD. Patient's creatinine approximately 3 months ago was 1.7. Continue to monitor. 6. Chronic back pain. On suboxone at home. Confirmed with patient's pharmacy. Continue home medication 7. Depression and anxiety. Continue Lexapro. Continue Klonopin as needed. 8. DVT prophylaxis. Started on eliquis. Case discussed in detail with the patient regarding current diagnosis and treatment plan. All questions answered.
--- NOTE | 2018-07-13 16:12 | CON ---
DATE OF CONSULTATION: 07/13/2018 CARDIOLOGY CONSULTATION HISTORY: The patient is a 72-year-old male, who presented with dyspnea. He was found to have a DVT as well as a pulmonary embolism. PAST MEDICAL HISTORY: The patient's past medical history is notable for knee surgery approximately 2 years ago. This was complicated by a neuropathy including a drop foot. Since then, the patient has been sedentary and mostly homebound He noticed intermittent swelling of the right lower extremity over the past several weeks and found to became dyspneic recently. The patient's past medical history is free of cardiac disease. No previous hypertension or diabetes mellitus. No previous cardiac history. SOCIAL HISTORY: The patient does not smoke. REVIEW OF SYSTEMS: Review of systems was free of cardiac symptomatology. PHYSICAL EXAMINATION: VITAL SIGNS: Stable. NECK: Negative JVD. LUNGS: Without rales. CARDIAC: Heart rate S1, S2. EXTREMITIES: The right lower extremity has trace edema. LABORATORY DATA: EKG shows no acute changes. Laboratories, troponins are negative. IMPRESSION: 1. Dyspnea. 2. Secondary to pulmonary embolism. 3. Secondary to (#3), deep venous thrombosis. 4. History of neuropathy. 5. History of right knee surgery. PLAN: Given these findings, the patient needs to be fully anticoagulated. Echocardiogram shows no acute changes with good LV function. Anton Heard MD
[2018-07-14 06:44] LABS: BASO # 0.02 K/mm3 (0.0-2.0); BASO % 0.4 % (0.0-3.0); EOS # 0.1 (0.0-0.7); EOS % 2.4 % (1.5-5.0); HEMOGLOBIN 14.3 g/dL (14.0-18.0); LYMPH # 1.6 (1.2-3.4); LYMPH % 32.1 % (22.0-35.0); MEAN CELL VOLUME 98.6 fl (80.0-105.0); MEAN CORPUSCULAR HEMOGLOBIN 32.8 pg (25.0-35.0); MEAN CORPUSCULAR HGB CONC 33.3 g/dl (31.0-37.0); MEAN PLATELET VOLUME 11.1 fl (7.0-11.0); MONO # 0.6 (0.1-0.6); MONO % 11.2 % (1.0-6.0); RBC 4.36 10^6/uL (3.5-6.1); RED CELL DISTRIBUTION WIDTH 14.5 % (11.5-14.5); WHITE BLOOD COUNT 4.9 10^3/uL (4.5-11.0)
[2018-07-14 07:27] LABS: ALB/GLOB RATIO 1.1 (1.1-1.8); ALBUMIN 3.7 g/dL (3.0-4.8); CALCIUM 8.8 mg/dL (8.4-10.5)
--- NOTE | 2018-07-14 08:08 | CP.PCM.PN ---
Subjective - Date & Time of Evaluation Date of Evaluation: 07/14/18 Time of Evaluation: 08:08 - Subjective Subjective: Jewel Fairbanks PGY2 - Heme/Onc Progress Note No acute events reported overnight. No new complaints offered. Denies chest pain, shortness of breath, abdominal pain, nausea, vomiting, fever, chills. Objective - Vital Signs/Intake and Output Vital Signs (last 24 hours): Temp Pulse Resp BP Pulse Ox 97.1 F L 53 L 18 122/70 98 07/13/18 06:00 07/13/18 06:00 07/13/18 06:00 07/13/18 06:00 07/13/18 06:00 - Medications Medications: Current Medications Acetaminophen (Tylenol 325mg Tab) 650 mg PO Q6 PRN PRN Reason: Fever >100.4 F Apixaban (Eliquis) 10 mg PO BID [facility]; Protocol Stop: 07/21/18 18:00 Clonazepam (Klonopin) 1 mg PO TID PRN PRN Reason: Anxiety Last Admin: 07/13/18 08:03 Dose: 1 mg Escitalopram Oxalate (Lexapro) 20 mg PO DAILY [facility] Last Admin: 07/13/18 11:26 Dose: 20 mg Home Med (Home Med) 1 unit SL TID [facility] Last Admin: 07/13/18 18:07 Dose: 1 unit - Labs Labs: 07/14/18 06:25 07/14/18 06:25 PT 12.9 SECONDS (9.4-12.5) H 07/11/18 20:17 INR 1.16 07/11/18 20:17 APTT 31.4 Seconds (26.9-38.3) 07/11/18 20:17 - Constitutional Appears: Non-toxic, No Acute Distress - Head Exam Head Exam: ATRAUMATIC, NORMOCEPHALIC - Eye Exam Eye Exam: EOMI, PERRL - ENT Exam ENT Exam: Mucous Membranes Moist - Respiratory Exam Respiratory Exam: Clear to Ausculation Bilateral, NORMAL BREATHING PATTERN - Cardiovascular Exam Cardiovascular Exam: REGULAR RHYTHM, +S1, +S2 - GI/Abdominal Exam GI & Abdominal Exam: Soft, Normal Bowel Sounds. absent: Firm, Guarding, Rigid - Extremities Exam Extremities Exam: absent: Calf Tenderness, Pedal Edema - Neurological Exam Neurological Exam: Alert, Awake, CN II-XII Intact, Oriented x3 Additional comments: motor and sensory grossly intact - Psychiatric Exam Psychiatric exam: Normal Affect, Normal Mood - Skin Skin Exam: Dry, Warm Assessment and Plan - Assessment and Plan (Free Text) Assessment: 72 year old male with past medical history of prostate cancer s/p seeding and radiation, chronic back pain s/p multiple disc infusions, s/p pain management placement of nerve stimulator s/p 6 months prior, bilateral TKA x 2 (s/p 3 and 4 years) with presented right femoral vein DVT as evidence by US and right mid lobe segmental branch non-occlusive pulmonary embolus as evidence of CTA. Plan: Provoked DVT in the setting of immobilization secondary to chronic back pain Right middle lobe segmental non-occlusive pulmonary embolus Thrombocytpoenia Hx of Prostate Cancer - DVT located in right femoral vein as evidence by LE US - Right middle lobe segmental non-occlusive pulmonary embolus as evidence by CTA - No prior history of DVT/PE - Follow up hypercoaguable work up, less suspicious considering previous radiation therapy as possible source for damage of veins in conjunction with increased limited mobility for extended period of time (6-12 months) - IR consulted and following, no indications for interventions - Eliquis 10mg PO BID for seven days(July 21), then transition to 5mg PO BID - Patient to likely need follow up Lower extremity US and CTA after completion of 3 months of anti-coagulation therapy -Further management per primary team -Follow up with Dr. Sterling in his office in 2 weeks upon discharge -Further recommendations per Dr. Sterling
--- NOTE | 2018-07-14 09:07 | PN ---
DATE: 07/14/2018 PULMONARY NOTE SUBJECTIVE: The patient appears comfortable this morning. He is not short of breath at rest. PHYSICAL EXAMINATION: VITALS: (Last noted in the computer): Temperature is 97.1, pulse 53, respirations 18, blood pressure 122/70, oxygen saturation on room air - 98%. HEENT: Normocephalic, atraumatic. No JVD. CARDIOVASCULAR: Positive S1, S2. No S3 gallop. LUNGS: Improved breath sounds at the bases. No rhonchi. No wheezing. EXTREMITIES: There is less swelling and less erythema to the patient's right lower extremity. There is no swelling or erythema in the left lower extremity. There is no cyanosis or clubbing. Both calves are nontender to palpation. GASTROINTESTINAL: Abdomen is soft, nontender, and nondistended. Bowel sounds are positive. SKIN: No acute rash. NEUROLOGIC: Exam limited at the present time. IMPRESSION: 1. Right middle lobe pulmonary embolism. 2. Right lower extremity deep venous thrombosis. 3. Mild renal insufficiency. 4. Thrombocytopenia. 5. Mild cardiomyopathy. PLAN: The patient appears comfortable this morning. He is not short of breath at rest. He does state to feeling much better overall. Damian Benitez MD
[2018-07-14] MEDS: SUBOXONE SL SCH ×4 (09:12→17:15)
--- NOTE | 2018-07-14 09:16 | PN ---
DATE: 07/14/2018 PULMONARY NOTE SUBJECTIVE: The patient appears comfortable this morning. He is not short of breath at rest. PHYSICAL EXAMINATION: VITALS: (Last noted in the computer): Temperature is 97.1, pulse 53, respirations 18, blood pressure 122/70, oxygen saturation on room air - 98%. HEENT: Normocephalic, atraumatic. No JVD. CARDIOVASCULAR: Positive S1, S2. No S3 gallop. LUNGS: Improved breath sounds at the bases. No rhonchi. No wheezing. EXTREMITIES: There is continued decrease in swelling and erythema of the patient's right lower extremity. There is no swelling in the left lower extremity. There is no cyanosis or clubbing. Both calves are nontender to palpation. GASTROINTESTINAL: Abdomen is soft, nontender, and nondistended. Bowel sounds are positive. SKIN: No acute rash. NEUROLOGIC: Exam limited at the present time. IMPRESSION: 1. Right middle lobe pulmonary embolism. 2. Right lower extremity deep venous thrombosis. 3. Mild renal insufficiency. 4. Thrombocytopenia. 5. Mild cardiomyopathy. PLAN: The patient appears very comfortable this morning. He is not short of breath at rest. He does state to feeling much, much better overall. On physical exam, there is no significant bronchospasm noted. In addition, the oxygen saturation on room air is now 98%. The patient has been transitioned to oral Eliquis. Inputs by Cardiology,Internal Medicine and hematology are also noted. Clinical status of the patient is significantly improved overall. Hypercoagulable workup is in progress. I will discuss the above with the medical team later this morning. Damian Bneitez MD [facility]
--- NOTE | 2018-07-14 12:25 | PQF ---
PROVIDER RESPONSE TEXT: CKD stage 3 REVIEWER QUERY TEXT: Kidney Disease, Chronic CKD Stage Chronic Kidney Disease (CKD) is documented in the Medical Record. Please specify the disease stage ( includes probable or suspected) Such as: -- Chronic kidney disease Stage 1 -- Chronic kidney disease Stage 2 -- Chronic kidney disease Stage 3 -- Chronic kidney disease Stage 4 -- Chronic kidney disease Stage 5 -- Chronic kidney disease Stage 5, requiring dialysis -- End Stage Renal Disease -- Other, please specify Stages are defined by the [employer] as follows: CKD Stage I GFR >= 90 ml / min per 1.73 m2 and persistent albuminuria CKD Stage 2 GFR between 60 and 89 with persistent albuminuria CKD Stage 3 GFR between 30 and 59 CKD Stage 4 GFR between 15 and 29 CKD Stage 5 GFR between <15 or End Stage Renal Disease The patient's Clinical Indicators include: Please provide stage, if known, of CKD. Query created by: Harriet Alfred on 07/14/2018 12:16 PM Electronically signed by: Bree Peralta DO 07/14/2018 12:22 PM
--- NOTE | 2018-07-14 12:59 | CP.PCM.CON ---
<Mckay Corado - Last Filed: 07/14/18 12:52> History of Present Illness - History of Present Illness History of Present Illness: Nephrology Consultation (Dr. Batres's Service) CC: RLE DVT HPI: Mr. Vaca is a 72 year old male with a past medical history significant for prostate cancer s/p seeding/radiation, history bilateral TKA, and chronic back pain who is admitted and currently being treated for RLE DVT. Nephrology was consulted for management of CKD. Patient states that he doesn't remember if he was previously being seen by a kidney doctor specifically in the past but does remember being seen by his previous PMD's partner, Dr. Batres, in the past. Since admission, he has been started on Eliquis for his DVT and has been noted to have relatively stable kidney function. He currently denies any complaints and reports that walking has gotten progressively less challenging f or him since he started working with PT. Further 12 point ROS reviewed and unremarkable at this time. PMH: As stated above PSH: B/L TKA, multiple vertebral fusions, spinal cord stimulator placement, carpal tunnel release Family History: Non-contributory Social History: Former smoker (quit 30 years ago); Denies any current tobacco, alcohol or illicit drug use; Retired [employer] Hel[employer]; Lives with in [facility] Allergies: NKDA Home Medications: Reviewed; As per [facility] PMD: Dr. Donaldson Casing Tester: Dr. Batres Review of Systems - Review of Systems Review of Systems: As stated in HPI, otherwise negative Past Patient History - Infectious Disease Hx of Infectious Diseases: None - Tetanus Immunizations Tetanus Immunization: Up to Date - Past Social History Smoking Status: Never Smoked - CARDIAC Hx Cardiac Disorders: No - PULMONARY Hx Respiratory Disorders: No - NEUROLOGICAL Hx Neurological Disorder: No - HEENT Hx HEENT Problems: No - RENAL Hx Kidney Stones: Yes - ENDOCRINE/METABOLIC Hx Endocrine Disorders: No - HEMATOLOGICAL/ONCOLOGICAL Hx Cancer: Yes (PANCREATIC tx with seeds and radiation dx 2 yrs ago) - INTEGUMENTARY Hx Dermatological Problems: No - MUSCULOSKELETAL/RHEUMATOLOGICAL Hx Falls: No - GASTROINTESTINAL Hx Gastrointestinal Disorders: No - GENITOURINARY/GYNECOLOGICAL Hx Genitourinary Disorders: No - PSYCHIATRIC Hx Depression: No Hx Emotional Abuse: No Hx Physical Abuse: No Hx Substance Use: No Other/Comment: abusing tranquilizers for back discomfort, as per pt - SURGICAL HISTORY Hx Orthopedic Surgery: Yes (B HIP REPLACEMENT NECK SX) Other/Comment: bilateral hip replacement, cervical neck sx,, lower back sxc l3 l4 l5, sx for scar tissue post lower back sx, right and left hip replacement, sx for stenosis to arms and wrists. bilateral knee replacement - ANESTHESIA Hx Anesthesia: No Meds Allergies/Adverse Reactions: Allergies Allergy/AdvReac Type Severity Reaction Status Date / Time No Known Allergies Allergy Verified 07/11/18 19:20 - Medications Medications: Current Medications Acetaminophen (Tylenol 325mg Tab) 650 mg PO Q6 PRN PRN Reason: Fever >100.4 F Apixaban (Eliquis) 10 mg PO BID [facility]; Protocol Stop: 07/21/18 18:00 Last Admin: 07/14/18 09:12 Dose: 10 mg Clonazepam (Klonopin) 1 mg PO TID PRN PRN Reason: Anxiety Last Admin: 07/14/18 08:20 Dose: 1 mg Escitalopram Oxalate (Lexapro) 20 mg PO DAILY [facility] Last Admin: 07/14/18 09:12 Dose: 20 mg Folic Acid (Folic Acid) 1 mg PO DAILY [facility] Home Med (Home Med) 1 unit SL TID [facility] Last Admin: 07/14/18 10:43 Dose: Not Given Physical Exam - Constitutional Appears: Non-toxic, No Acute Distress - Head Exam Head Exam: ATRAUMATIC, NORMOCEPHALIC - Eye Exam Eye Exam: EOMI - ENT Exam ENT Exam: Mucous Membranes Moist - Neck Exam Neck exam: Positive for: Full Rom - Respiratory Exam Respiratory Exam: Clear to Auscultation Bilateral, NORMAL BREATHING PATTERN - Cardiovascular Exam Cardiovascular Exam: REGULAR RHYTHM - GI/Abdominal Exam GI & Abdominal Exam: Normal Bowel Sounds, Soft. absent: Tenderness - Extremities Exam Additional comments: Mild RLE edema - Neurological Exam Neurological exam: Alert, Oriented x3 - Psychiatric Exam Psychiatric exam: Normal Affect, Normal Mood - Skin Skin Exam: Dry, Warm Results - Vital Signs Recent Vital Signs: Last Vital Signs Temp 97.1 F L 07/13/18 06:00 Pulse 53 L 07/13/18 06:00 Resp 18 07/13/18 06:00 BP 122/70 07/13/18 06:00 Pulse Ox 98 07/13/18 06:00 - Labs Result Diagrams: 07/14/18 06:25 07/14/18 06:25 Labs: Laboratory Results - last 24 hr 07/12/18 07/13/18 07/14/18 12:00 06:00 06:25 WBC 4.9 RBC 4.36 Hgb 14.3 Hct 43.0 MCV 98.6 MCH 32.8 MCHC 33.3 RDW 14.5 Plt Count 86 L MPV 11.1 H Neut % (Auto) 53.9 Lymph % (Auto) 32.1 [place] % (Auto) 11.2 H Eos % (Auto) 2.4 Baso % (Auto) 0.4 Lymph # (Auto) 1.6 [place] # (Auto) 0.6 Eos # (Auto) 0.1 Baso # (Auto) 0.02 Absolute Neuts (auto) 2.65 Differential Comment See pathology report Sodium Potassium Chloride Carbon Dioxide Anion Gap BUN Creatinine Est GFR ( Amer) Est GFR (Non-Af Amer) Random Glucose Calcium Total Bilirubin AST ALT Alkaline Phosphatase Total Protein Albumin Globulin Albumin/Globulin Ratio Free PSA <0.1 % Free PSA Unable to calculate Total PSA <0.1 07/14/18 06:25 WBC RBC Hgb Hct MCV MCH MCHC RDW Plt Count MPV Neut % (Auto) Lymph % (Auto) [place] % (Auto) Eos % (Auto) Baso % (Auto) Lymph # (Auto) [place] # (Auto) Eos # (Auto) Baso # (Auto) Absolute Neuts (auto) Differential Comment Sodium 142 Potassium 5.2 H Chloride 106 Carbon Dioxide 28 Anion Gap 14 BUN 37 H Creatinine 1.6 H Est GFR ( Amer) 52 Est GFR (Non-Af Amer) 43 Random Glucose 91 Calcium 8.8 Total Bilirubin 0.9 AST 39 ALT 29 Alkaline Phosphatase 50 Total Protein 7.1 Albumin 3.7 Globulin 3.4 Albumin/Globulin Ratio 1.1 Free PSA % Free PSA Total PSA Assessment & Plan - Assessment and Plan (Free Text) Assessment: 72 year old male with a past medical history significant for prostate cancer s/p seeding/radiation, history bilateral TKA, and chronic back pain who is admitted and currently being treated for RLE DVT. Nephrology was consulted for management of CKD. Plan: 1. CKD Stage 3a -Relatively stable renal function during admission -Relatively stable electrolyte and volume status -No need for CAREER DEVELOPMENT DIRECTOR or any other interventions at this time -Patients calculated ASCVD risk is 20.3%; Will start high intensity statin while inpatient and patient will need to continue this as an outpatient -Will obtain routine CKD workup that can be followed up in Dr. Batres's outpatient clinic -Avoid nephrotoxic agents and renally dose medications for appropriate eGFR 2. RLE DVT -Continue Eliquis Disposition: Patient can be discharged from a nephrology standpoint with outpatient followup with Dr. Batres's office in one to two weeks. This was discussed with patient and patient was also given information regarding all information necessary to schedule an appointment at our office. Patient seen and case discussed with attending, Dr. Batres. Mckay Corado PGY2 - Date & Time Date: 07/14/18 Time: 12:52 <Marty Batres - Last Filed: 07/14/18 20:30> Meds - Medications Medications: Current Medications Acetaminophen (Tylenol 325mg Tab) 650 mg PO Q6 PRN PRN Reason: Fever >100.4 F Apixaban (Eliquis) 10 mg PO BID [facility]; Protocol Stop: 07/21/18 18:00 Last Admin: 07/14/18 17:15 Dose: 10 mg Atorvastatin Calcium (Lipitor) 80 mg PO DIN [facility] Last Admin: 07/14/18 17:15 Dose: 80 mg Clonazepam (Klonopin) 1 mg PO TID PRN PRN Reason: Anxiety Last Admin: 07/14/18 15:39 Dose: 1 mg Escitalopram Oxalate (Lexapro) 20 mg PO DAILY [facility] Last Admin: 07/14/18 09:12 Dose: 20 mg Folic Acid (Folic Acid) 1 mg PO DAILY [facility] Last Admin: 07/14/18 10:51 Dose: 1 mg Home Med (Home Med) 1 unit SL TID [facility] Last Admin: 07/14/18 17:15 Dose: Not Given Results - Vital Signs Recent Vital Signs: Last Vital Signs Temp 97.4 F L 07/14/18 16:36 Pulse 82 07/14/18 16:36 Resp 20 07/14/18 16:36 BP 149/73 07/14/18 16:36 Pulse Ox 99 07/14/18 16:36 - Labs Result Diagrams: 07/14/18 06:25 07/14/18 06:25 Labs: Laboratory Results - last 24 hr 07/12/18 07/13/18 07/14/18 12:00 06:00 06:25 WBC 4.9 RBC 4.36 Hgb 14.3 Hct 43.0 MCV 98.6 MCH 32.8 MCHC 33.3 RDW 14.5 Plt Count 86 L MPV 11.1 H Neut % (Auto) 53.9 Lymph % (Auto) 32.1 [place] % (Auto) 11.2 H Eos % (Auto) 2.4 Baso % (Auto) 0.4 Lymph # (Auto) 1.6 [place] # (Auto) 0.6 Eos # (Auto) 0.1 Baso # (Auto) 0.02 Absolute Neuts (auto) 2.65 Differential Comment See pathology report Factor VIII Activity 149 Sodium Potassium Chloride Carbon Dioxide Anion Gap BUN Creatinine Est GFR ( Amer) Est GFR (Non-Af Amer) Random Glucose Calcium Iron TIBC % Saturation Ferritin Total Bilirubin AST ALT Alkaline Phosphatase Total Protein Albumin Globulin Albumin/Globulin Ratio 25-OH Vitamin D Total Urine Color Urine Appearance Urine pH Ur Specific [place] Urine Protein Urine Glucose (UA) Urine Ketones Urine Blood Urine Nitrate Urine Bilirubin Urine Urobilinogen Ur Leukocyte Esterase Urine RBC Urine WBC Ur Epithelial Cells Urine Bacteria Ur Random Creatinine U Random Total Protein 07/14/18 07/14/18 07/14/18 06:25 13:00 13:00 WBC RBC Hgb Hct MCV MCH MCHC RDW Plt Count MPV Neut % (Auto) Lymph % (Auto) [place] % (Auto) Eos % (Auto) Baso % (Auto) Lymph # (Auto) [place] # (Auto) Eos # (Auto) Baso # (Auto) Absolute Neuts (auto) Differential Comment Factor VIII Activity Sodium 142 Potassium 5.2 H Chloride 106 Carbon Dioxide 28 Anion Gap 14 BUN 37 H Creatinine 1.6 H Est GFR ( Amer) 52 Est GFR (Non-Af Amer) 43 Random Glucose 91 Calcium 8.8 Iron 151 TIBC 287 % Saturation 53 Ferritin 119.0 Total Bilirubin 0.9 AST 39 ALT 29 Alkaline Phosphatase 50 Total Protein 7.1 Albumin 3.7 Globulin 3.4 Albumin/Globulin Ratio 1.1 25-OH Vitamin D Total 33.7 Urine Color Urine Appearance Urine pH Ur Specific [place] Urine Protein Urine Glucose (UA) Urine Ketones Urine Blood Urine Nitrate Urine Bilirubin Urine Urobilinogen Ur Leukocyte Esterase Urine RBC Urine WBC Ur Epithelial Cells Urine Bacteria Ur Random Creatinine U Random Total Protein 07/14/18 07/14/18 07/14/18 14:10 14:10 14:10 WBC RBC Hgb Hct MCV MCH MCHC RDW Plt Count MPV Neut % (Auto) Lymph % (Auto) [place] % (Auto) Eos % (Auto) Baso % (Auto) Lymph # (Auto) [place] # (Auto) Eos # (Auto) Baso # (Auto) Absolute Neuts (auto) Differential Comment Factor VIII Activity Sodium Potassium Chloride Carbon Dioxide Anion Gap BUN Creatinine Est GFR ( Amer) Est GFR (Non-Af Amer) Random Glucose Calcium Iron TIBC % Saturation Ferritin Total Bilirubin AST ALT Alkaline Phosphatase Total Protein Albumin Globulin Albumin/Globulin Ratio 25-OH Vitamin D Total Urine Color Yellow Urine Appearance Cloudy Urine pH 5.5 Ur Specific [place] 1.020 Urine Protein 30 H Urine Glucose (UA) Negative Urine Ketones Negative Urine Blood Small H Urine Nitrate Positive H Urine Bilirubin Negative Urine Urobilinogen 0.2 Ur Leukocyte Esterase Large H Urine RBC 1 - 3 H Urine WBC Tntc H Ur Epithelial Cells None Urine Bacteria Large Ur Random Creatinine 103 U Random Total Protein 50 Assessment & Plan - Assessment and Plan (Free Text) Plan: Pt seen and examined by me. I have reviewed the note of the medical cash poster and I agree with it. I have discussed the assessment and plan with the resident. I have reviewed the medications and the last labs.
--- NOTE | 2018-07-14 13:46 | PN ---
DATE: 07/14/2018 CARDIOLOGY FOLLOWUP SUBJECTIVE: The patient's breathing is much improved. PHYSICAL EXAMINATION VITAL SIGNS: Stable. NECK: Negative JVD. LUNGS: Without rales. HEART: Reveals S1 and S2. EXTREMITIES: Decreasing edema. LABORATORY DATA: Hemoglobin is 14.3. Chemistries, BUN and creatinine 37 and 1.6. IMPRESSION: 1. Deep venous thrombosis. 2. Pulmonary embolism. 3. Resolution of dyspnea. 4. The patient is tolerating his Eliquis. 5. Status post knee surgery. 6. Inactivity. Given these findings, the patient is doing well. The patient will need to be on long-term anticoagulation. Anton Heard MD
--- NOTE | 2018-07-14 16:04 | CP.PCM.PN ---
<Jd Peralta - Last Filed: 07/14/18 16:21> Subjective - Date & Time of Evaluation Date of Evaluation: 07/14/18 Time of Evaluation: 10:00 - Subjective Subjective: Jd Peralta DO PGY1 - Internal Medicine Repairer Welding Equipment - Hospitalist Progress Note NO acute events overnight, patient reports he feels much better. No sob, cp, palpitations, abd pain, n/v/d/c Objective - Vital Signs/Intake and Output Vital Signs (last 24 hours): Temp Pulse Resp BP Pulse Ox 97.1 F L 53 L 18 122/70 98 07/13/18 06:00 07/13/18 06:00 07/13/18 06:00 07/13/18 06:00 07/13/18 06:00 - Medications Medications: Current Medications Acetaminophen (Tylenol 325mg Tab) 650 mg PO Q6 PRN PRN Reason: Fever >100.4 F Apixaban (Eliquis) 10 mg PO BID [facility]; Protocol Stop: 07/21/18 18:00 Last Admin: 07/14/18 09:12 Dose: 10 mg Atorvastatin Calcium (Lipitor) 80 mg PO DIN [facility] Clonazepam (Klonopin) 1 mg PO TID PRN PRN Reason: Anxiety Last Admin: 07/14/18 08:20 Dose: 1 mg Escitalopram Oxalate (Lexapro) 20 mg PO DAILY [facility] Last Admin: 07/14/18 09:12 Dose: 20 mg Folic Acid (Folic Acid) 1 mg PO DAILY [facility] Last Admin: 07/14/18 10:51 Dose: 1 mg Home Med (Home Med) 1 unit SL TID [facility] Last Admin: 07/14/18 14:48 Dose: Not Given - Labs Labs: 07/14/18 06:25 07/14/18 06:25 PT 12.9 SECONDS (9.4-12.5) H 07/11/18 20:17 INR 1.16 07/11/18 20:17 APTT 31.4 Seconds (26.9-38.3) 07/11/18 20:17 - Constitutional Appears: Well, Non-toxic, No Acute Distress - Head Exam Head Exam: ATRAUMATIC, NORMOCEPHALIC - Eye Exam Eye Exam: EOMI, PERRL - Respiratory Exam Respiratory Exam: RLL Crackles - Cardiovascular Exam Cardiovascular Exam: RRR. absent: Tachycardia, Murmur - GI/Abdominal Exam GI & Abdominal Exam: Soft. absent: Tenderness - Extremities Exam Additional comments: RLE Erythema + Edema - significantly improved compared to day prior Chronic venostatic dermatitis BL Both legs w/ 2+ pedal pulses Assessment and Plan - Assessment and Plan (Free Text) Assessment: 72M w/ PMH Prostate CA s/p chemorad in remission, Chronic Back Pain, Mood Disorder, presented to [facility] ED 07/12 w/ complaints of worsening RLE erythema / edema. Admitted for management of DVT/PE. RLE DVT + PE 07/11 Duplex LE Outpt - Confirmed DVT - R Common Femoral Vein 07/11 CT Angio - RML Segmental Branch Acute Nonocclusive PE Most likely a provoked DVT 2/ immobilization Given Heparin Bolus in ED followed by Therapeutic Lovenox 110mg Q12 - Discontinued 07/13 Started Eliquis 10mg BID 07/14 Patient will need Eliquis 10mg BID x 7 days followed by Eliquis 5mg BID for remainder of treatment duration Will need follow up BL LE Duplex + CTA 3months after completion of anti- coagulation therapy - as per heme/onc IR consultation for IVC Filter placement as per Heme/Onc - Patient not a candidate Hypercoaguability work up per Heme/Onc Heme/Onc Following Pulmonology Following Initial EKG w/ LBBB - Likely an old finding, Repeat EKG w/o LBBB 07/12 Echocardiogram - EF 45% + Grade III Reversible restrictive diastolic dysf unction Initial Troponin 0.02 A1C 5.4 / Lipid panel wnl Cardiology Following, ECHO interpreted as within normal limits - patient will likely need intermediate anticoagulation CKD Stage 3a as per nephrology CKD work up started; can be followed up as outpt Patient is to follow up w/ Dr. Batres as outpt Nephrology following Thrombocytopenia PLT 86 < 80 Manual PLT - 91 No complaints of mucosal bleeding; PT/PTT INR wnl Continue Monitoring PLT Continue Monitoring s/s bleeding Heme/Onc Following Hx Prostate Ca: 07/12 CTAP w/ PO CON - No comment of intrabdominal mass/ local malignancy per radiology read CEA, CA 19-9 - wnl PSA unable to calculate ASCVD Risk - 20.3% Started Lipitor HTN No prior history; Continue Monitoring Cardiology Following Hx Anxiety/ Mood Disorder C/w home Lexapro 20 Daily C/w home Klonopin 1mg TID PRN Hx Chronic Back Pain Suboxone 8/2 1tab TID Verified w/ Pharm[facility] Non-Formulary Here -Patient brought from home GI/DVT PPX GI not indicated Lovenox as above Patient was seen, examined, and discussed with attending physician Dr. Bree Peralta DO PGY1 - Internal Medicine Repairer Welding Equipment - Hospitalist Progress Note <Bree Peralta R - Last Filed: 07/15/18 06:45> Objective - Vital Signs/Intake and Output Vital Signs (last 24 hours): Temp Pulse Resp BP Pulse Ox 97.4 F L 82 20 149/73 99 07/14/18 16:36 07/14/18 16:36 07/14/18 16:36 07/14/18 16:36 07/14/18 16:36 Intake and Output: 07/14/18 07/15/18 18:59 06:59 Intake Total 1520 Balance 1520 - Medications Medications: Current Medications Acetaminophen (Tylenol 325mg Tab) 650 mg PO Q6 PRN PRN Reason: Fever >100.4 F Apixaban (Eliquis) 10 mg PO BID [facility]; Protocol Stop: 07/21/18 18:00 Last Admin: 07/14/18 17:15 Dose: 10 mg Atorvastatin Calcium (Lipitor) 80 mg PO DIN [facility] Last Admin: 07/14/18 17:15 Dose: 80 mg Clonazepam (Klonopin) 1 mg PO TID PRN PRN Reason: Anxiety Last Admin: 07/14/18 23:23 Dose: 1 mg Escitalopram Oxalate (Lexapro) 20 mg PO DAILY [facility] Last Admin: 07/14/18 09:12 Dose: 20 mg Folic Acid (Folic Acid) 1 mg PO DAILY [facility] Last Admin: 07/14/18 10:51 Dose: 1 mg Home Med (Home Med) 1 unit SL TID [facility] Last Admin: 07/14/18 17:15 Dose: Not Given - Labs Labs: 07/14/18 06:25 07/14/18 06:25 PT 12.9 SECONDS (9.4-12.5) H 07/11/18 20:17 INR 1.16 07/11/18 20:17 APTT 31.4 Seconds (26.9-38.3) 07/11/18 20:17 Attending/Attestation - Attestation I have personally seen and examined this patient.: Yes I have fully participated in the care of the patient.: Yes I have reviewed all pertinent clinical information, including history, physical exam and plan: Yes Notes (Text): Patient seen and examined by me with resident at approximately 10:15 AM on 07/14/18. Case including HPI, physical exam, and assessment and plan discussed with resident. Agree with above with following additions/corrections. Patient is 72-year-old male with past medical history significant for prostate cancer status post prostatectomy, bilateral knee replacements, and chronic back pain that presented to the emergency room from his doctor's office for right lower extremity DVT found on ultrasound. Patient states he feels ok. States he ambulated with physical therapy without any shortness of breath or leg pain. States his back is feeling better as well. Patient denies chest pain or palpitations. No nausea, vomiting, or abdominal pain. No headaches or dizziness. No fevers or chills. No dysuria. Physical exam: General: Awake and alert lying in bed in no acute distress. HEENT: Normocephalic, atraumatic. Extraocular muscles intact, pupils equal and reactive, no scleral icterus. Oropharynx is pink and moist. No pharyngeal erythema or exudate appreciated. Neck is supple. Cardiovascular: Regular rhythm. Normal S1 and S2. No murmurs, rubs, or gallops appreciated Pulmonary: Normal respiratory effort. Decreased breath sounds at bases. No rhonchi, rales or wheezing appreciated. Gastrointestinal: Soft, nondistended. Nontender. Positive bowel sounds all 4 quadrants. No guarding. Musculoskeletal: Moves all extremities. Bilateral lower extremities with trace edema Central nervous system: AAOx3. CN 2-12 grossly inact Dermatologic: Skin warm and dry. Bilateral lower extremities with dry, scaly skin. Assessment and plan: Patient is 72-year-old male with past medical history significant for prostate cancer status post prostatectomy, bilateral knee replacements, and chronic back pain that presented to the emergency room from his doctor's office for right lower extremity DVT found on ultrasound. 1. Right lower extremity DVT. Right middle lobe nonocclusive acute PE. Pulmonary recommendations appreciated. Hem/onc recommendations appreciated. Continue Eliquis. Risks including but not limited increase risk of bleeding discussed at length with patient. Patient understands and agrees to take the medication. Seen by IR. Likely provoked from immobility. Will need repeat imaging in [address] abd/pelvis per radiologist showed no evidence of significant lymphadenopathy, bilateral renal calculi, left upper pole low density renal mass likely cortical cyst, no acute abnormality, nonspecific interstitial changes in the right lower lobe. 2D echo per truck driver instructor showed left ventricle is normal size, boderline concentric left ventricular hypertrophy, systolic function is mildly imparied with EF of 45%, trace aortic regurgitation, mitral regurgitation is trace, trace tricuspid regurgitation, IVC is normal in size and collapses, no pericardial effusion, no vegetation or thrombus noted, transmitral doppler flow pattern is Grade III reversible restrictive diastolic dysfunction. CTA chest per radiolo gist showed right middle lobe segmental branch nonocclusive acute pulmonary emboli. Bilateral lower extremity venous dopplers per radiologist showed adherent hypoechoic acute thrombus in the distal right common femoral vein extending into the right femoral vein origin. 2. Dyspnea. Improved. Continue on Eliquis. 2D echo as above. Continue with O2 via nasal cannula as needed. 3. Combined diastolic and systolic. Compensated Cardiology recommendations appreciated 4. Thrombocytopenia. Appears chronic. No signs of acute bleeding. Hem/onc recommendations appreciated. 5. CKD. Patient's creatinine approximately 3 months ago was 1.7. Nephrology consulted, pending recommendations. 6. Chronic back pain. On suboxone at home. Confirmed with patient's pharmacy. Continue home medication 7. Depression and anxiety. Continue Lexapro. Continue Klonopin as needed. 8. DVT prophylaxis. Eliquis Case discussed in detail with the patient regarding current diagnosis and treatment plan. All questions answered.
[2018-07-14 16:17] LABS: PH,URINE 5.5 (4.7-8.0); URINE APPEARANCE CLOUDY (CLEAR); URINE BILIRUBIN NEGATIVE (NEGATIVE); URINE BLOOD SMALL (NEGATIVE); URINE COLOR YELLOW (YELLOW); URINE GLUCOSE (UA) NEGATIVE (NEGATIVE); URINE LEUKOCYTE ESTERASE LARGE Leu/uL (NEGATIVE); URINE PROTEIN 30 mg/dL (<30 mg/dL); URINE UROBILINOGEN 0.2 E.U./dL (<1 E.U./dL)
[2018-07-14 16:23] LABS: URINE WBC TNTC /hpf (0-6)
[2018-07-14 16:24] LABS: URINE BACTERIA LARGE /hpf
[2018-07-14 16:37] VITALS: RESP 20
--- NOTE | 2018-07-15 01:14 | CON ---
DATE: 07/14/2018 NEPHROLOGY CONSULTATION REQUESTED BY: Dr. Peralta of the hospitalist service. HISTORY OF PRESENT ILLNESS: The patient has an elevated creatinine. This evaluation was for CKD stage 3. The patient was initially admitted to the hospital because of a right leg DVT. He has been placed on anticoagulation. The patient is currently comfortable. He does have chronic back issues and does take chronic pain medications. He has had fusions of his back. He has been using NSAIDs at times because of his pain. PHYSICAL EXAMINATION: VITAL SIGNS: . GENERAL: The patient is lying in bed, flat, comfortable. HEENT: No oral lesion. Anicteric sclerae. Moist mucosa. NECK: No JVD, adenopathy, or thyromegaly. CARDIOVASCULAR: S1 and S2, regular. No murmurs, rubs, or gallops. LUNGS: Clear to auscultation bilaterally. No wheeze, rales, or rhonchi. ABDOMEN: Bowel sounds are positive, soft, nontender and nondistended. EXTREMITIES: No cyanosis, clubbing or edema. ASSESSMENT: 1. Chronic kidney disease, stage 3. 2. Right leg deep vein thrombosis. PLAN: The patient is currently comfortable. He had an elevated risk score. He will most likely need statin therapy. The patient is currently on Eliquis for his anticoagulation. He has chronic back pain and does use NSAIDs. He has had advise to try to decrease his NSAID use. I did give him my card so he can follow up with me as an outpatient. The patient does not have any anemia. He does not have metabolic acidosis. His iron saturations are elevated. He should be evaluated for hemochromatosis by GI. The patient has a PTH that has been ordered as well to look for secondary hyperparathyroidism. Marty Batres MD
[2018-07-15 08:18] LABS: BASO # 0.02 K/mm3 (0.0-2.0); BASO % 0.4 % (0.0-3.0); EOS # 0.1 (0.0-0.7); EOS % 2.5 % (1.5-5.0); HEMOGLOBIN 15.4 g/dL (14.0-18.0); LYMPH # 1.4 (1.2-3.4); LYMPH % 26.6 % (22.0-35.0); MEAN CELL VOLUME 98.9 fl (80.0-105.0); MEAN CORPUSCULAR HEMOGLOBIN 33.8 pg (25.0-35.0); MEAN CORPUSCULAR HGB CONC 34.1 g/dl (31.0-37.0); MEAN PLATELET VOLUME 11.9 fl (7.0-11.0); MONO # 0.3 (0.1-0.6); MONO % 6.6 % (1.0-6.0); RBC 4.56 10^6/uL (3.5-6.1); RED CELL DISTRIBUTION WIDTH 14.5 % (11.5-14.5); WHITE BLOOD COUNT 5.2 10^3/uL (4.5-11.0)
[2018-07-15 08:39] LABS: ALB/GLOB RATIO 1.2 (1.1-1.8); ALBUMIN 4.1 g/dL (3.0-4.8); ALT/SGPT 55 U/L (7-56); AST/SGOT 72 U/L (17-59); BLOOD UREA NITROGEN 39 mg/dL (7-21); CALCIUM 9.3 mg/dL (8.4-10.5); GFR NON-AFRICAN AMERICAN 43
[2018-07-15] MEDS: SUBOXONE SL SCH (09:18)
--- NOTE | 2018-07-15 11:19 | CP.PCM.DIS ---
<Jd Peralta - Last Filed: 07/15/18 15:56> Provider - Provider Date of Admission: 07/11/18 21:20 Attending physician: Bree Peralta DO Consults: 07/12/18 07:45 Hematology Oncology Consult Routine Comment: Consulting Provider: Zuleyka Sterling Consulting Physician: Zuleyka Sterling Reason for Consult: Thrombocytopenia + DVT 07/12/18 09:24 Pulmonology Consult Routine Comment: Consulting Provider: Damian Benitez Consulting Physician: Damian Benitez Reason for Consult: Pulmonary Embolism 07/12/18 16:02 Physician Consult Routine Comment: Consulting Provider: Anton Galeano Consulting Physician: Anton Galeano Reason for Consult: IVC filter placement Additional Comments: 72 yo male with pmh of prostate CA, chronic back pain s/p multiple infusions, s/p pain management with implantation of nerve stimulator with recent development of RLE swelling and DVT noted to be right femoral vein and evidence of RML segmental non-occlusive PE. Patient noted to be mostly bed/couch bound secondary to chronic back pain and thus high risk for developing further DVT. Ab/Pelvis CT with oral and IV contrast ordered for further eval of clot. 07/12/18 16:23 Cardiology Consult Routine Comment: Consulting Provider: Anton Heard Consulting Physician: Anton Heard Reason for Consult: New onset LBBB; Reduced EF 07/14/18 10:22 Nephrology Consult Routine Comment: Consulting Provider: Marty Batres Consulting Physician: Marty Batres Reason for Consult: ckd Time Spent in preparation of Discharge (in minutes): 45 Diagnosis - Discharge Diagnosis (1) Pulmonary embolism Status: Acute Priority: High (2) Deep vein blood clot of right lower extremity Status: Acute Priority: High (3) CKD (chronic kidney disease) Status: Chronic Priority: Medium (4) Thrombocytopenia Status: Chronic Priority: Medium (5) HTN (hypertension) Status: Chronic Priority: Medium (6) Chronic back pain Status: Chronic Priority: Medium Hospital Course - Lab Results Lab Results: Most Recent Lab Values WBC 5.2 10^3/uL (4.5-11.0) 07/15/18 07:00 RBC 4.56 10^6/uL (3.5-6.1) 07/15/18 07:00 Hgb 15.4 g/dL (14.0-18.0) 07/15/18 07:00 Hct 45.1 % (42.0-52.0) 07/15/18 07:00 MCV 98.9 fl (80.0-105.0) 07/15/18 07:00 MCH 33.8 pg (25.0-35.0) 07/15/18 07:00 MCHC 34.1 g/dl (31.0-37.0) 07/15/18 07:00 RDW 14.5 % (11.5-14.5) 07/15/18 07:00 Plt Count 84 10^3/uL (120.0-450.0) L 07/15/18 07:00 Manual Plt Count 91 K/mm3 (120-450) L 07/13/18 06:00 MPV 11.9 fl (7.0-11.0) H 07/15/18 07:00 Neut % (Auto) 63.9 % (50.0-68.0) 07/15/18 07:00 Lymph % (Auto) 26.6 % (22.0-35.0) 07/15/18 07:00 [place] % (Auto) 6.6 % (1.0-6.0) H 07/15/18 07:00 Eos % (Auto) 2.5 % (1.5-5.0) 07/15/18 07:00 Baso % (Auto) 0.4 % (0.0-3.0) 07/15/18 07:00 Lymph # (Auto) 1.4 (1.2-3.4) 07/15/18 07:00 [place] # (Auto) 0.3 (0.1-0.6) 07/15/18 07:00 Eos # (Auto) 0.1 (0.0-0.7) 07/15/18 07:00 Baso # (Auto) 0.02 K/mm3 (0.0-2.0) 07/15/18 07:00 Absolute Neuts (auto) 3.32 (1.4-6.5) 07/15/18 07:00 Differential Comment See pathology report 07/13/18 06:00 PT 12.9 SECONDS (9.4-12.5) H 07/11/18 20:17 INR 1.16 07/11/18 20:17 APTT 31.4 Seconds (26.9-38.3) 07/11/18 20:17 Protein C Activity 70 % (70-180) 07/12/18 12:00 Protein S Activity 73 % (70-150) 07/12/18 12:00 Factor VIII Activity 149 % (50-180) 07/12/18 12:00 Sodium 143 mmol/L (132-148) 07/15/18 07:00 Potassium 5.2 mmol/L (3.6-5.0) H 07/15/18 07:00 Chloride 105 mmol/L (98-107) 07/15/18 07:00 Carbon Dioxide 30 mmol/L (21-33) 07/15/18 07:00 Anion Gap 12 (10-20) 07/15/18 07:00 BUN 39 mg/dL (7-21) H 07/15/18 07:00 Creatinine 1.6 mg/dl (0.8-1.5) H 07/15/18 07:00 Est GFR ( Amer) 52 07/15/18 07:00 Est GFR (Non-Af Amer) 43 07/15/18 07:00 Random Glucose 85 mg/dL (70-110) 07/15/18 07:00 Hemoglobin A1c 5.4 % (4.2-6.5) 07/12/18 06:45 Calcium 9.3 mg/dL (8.4-10.5) 07/15/18 07:00 Iron 151 ug/dL (45-180) 07/14/18 13:00 TIBC 287 ug/dL (261-462) 07/14/18 13:00 % Saturation 53 % (20-55) 07/14/18 13:00 Ferritin 119.0 ng/mL 07/14/18 13:00 Total Bilirubin 1.2 mg/dL (0.2-1.3) 07/15/18 07:00 AST 72 U/L (17-59) H D 07/15/18 07:00 ALT 55 U/L (7-56) 07/15/18 07:00 Alkaline Phosphatase 51 U/L (38-126) 07/15/18 07:00 Troponin I 0.02 ng/mL D 07/11/18 19:58 Total Protein 7.7 g/dL (5.8-8.3) 07/15/18 07:00 Albumin 4.1 g/dL (3.0-4.8) 07/15/18 07:00 Globulin 3.6 gm/dL 07/15/18 07:00 Albumin/Globulin Ratio 1.2 (1.1-1.8) 07/15/18 07:00 Triglycerides 82 mg/dL (35-160) 07/12/18 06:45 Cholesterol 153 mg/dL (130-200) 07/12/18 06:45 LDL Cholesterol Direct 108 mg/dL (0-129) 07/12/18 06:45 HDL Cholesterol 27 mg/dL (29-60) L 07/12/18 06:45 Carcinoembryonic Ag 1.5 ng/mL (0.0-3.0) 07/12/18 12:00 CA 19-9 Antigen 4.4 U/mL (0-37) 07/12/18 12:00 Free PSA <0.1 ng/mL 07/12/18 12:00 % Free PSA Unable to calculate % (calc) (>25) 07/12/18 12:00 Total PSA <0.1 ng/mL (< or = 4.0) 07/12/18 12:00 25-OH Vitamin D Total 33.7 NG/ML (30.0-100.0) 07/14/18 13:00 Homocysteine 15.1 umol/L (6.6-14.8) H 07/12/18 12:00 Urine Color Yellow (YELLOW) 07/14/18 14:10 Urine Appearance Cloudy (CLEAR) 07/14/18 14:10 Urine pH 5.5 (4.7-8.0) 07/14/18 14:10 Ur Specific [place] 1.020 (1.005-1.035) 07/14/18 14:10 Urine Protein 30 mg/dL (<30 mg/dL) H 07/14/18 14:10 Urine Glucose (UA) Negative mg/dL (NEGATIVE) 07/14/18 14:10 Urine Ketones Negative mg/dL (NEGATIVE) 07/14/18 14:10 Urine Blood Small (NEGATIVE) H 07/14/18 14:10 Urine Nitrate Positive (NEGATIVE) H 07/14/18 14:10 Urine Bilirubin Negative (NEGATIVE) 07/14/18 14:10 Urine Urobilinogen 0.2 E.U./dL (<1 E.U./dL) 07/14/18 14:10 Ur Leukocyte Esterase Large Jaleesa/uL (NEGATIVE) H 07/14/18 14:10 Urine RBC 1 - 3 /hpf (0-2) H 07/14/18 14:10 Urine WBC Tntc /hpf (0-6) H 07/14/18 14:10 Ur Epithelial Cells None /hpf (0-5) 07/14/18 14:10 Urine Bacteria Large /hpf (NONE) 07/14/18 14:10 Ur Random Creatinine 103 mg/dL 07/14/18 14:10 U Random Total Protein 50 mg/L 07/14/18 14:10 WB Flow Cytometry Reference test 07/15/18 07:30 - Hospital Course Hospital Course: Jd Peralta DO PGY1 : Hospitalist Discharge Summary 72M w/ PMH Prostate CA s/p chemorad in remission, Chronic Back Pain, Mood Disorder, presented to [facility] [place] ED 07/12 w/ complaints of worsening RLE erythema / edema. Patient reported symptoms were on going x1mo w/ increasing SOB / GALAN over the past 2-3 weeks. Patient presented to his PMD's office who at that time ordered outpt bilateral LE Duplex. Duplex revealed DVT in R common femoral vein. CT angio PE protocol performed upon admission; patient noted to have non obstructive R middle lobe pulmonary embolism. Patient was bolused w/ heparin and treated w/ lovenox. Patient also noted to have thrombocytopenia, as well as elevated BUN/Cr during admission. Pulmonology and Heme/Onc consulted; both whom agreed to transition patient to Eliquis prior to discharge; Patient was observed on Eliquis for 24 hours prior to discharge home. Heme/Onc also started hypercoaguability + thrombocytopenia while patient admitted and recommended patient follow up as outpt 3-5 days after discharge. Givent he patient's prior hx of prostate CA, CEA, ordered - both within normal limits; PSA level was unable to be calculated. CT Abdomen Pelvis ordered as well, impression: No evidence of significant lymphadenopathy. Bilateral renal calculi. Left upper pole low-density renal mass, likely cortical cyst. No acute abnormality. Nonspecific interstitial changes in right lower lobe.. As per heme/onc It was recommended that patient get a repeat duplex of BL LE and CT Angio PE Protocol after 3 months of anticoagulation. During admission echocardiogram was performed and cardiolgy also consulted; Cardiology recommended prolonged anticoagulation and no further management from an inpatient cardiology standpoint. Nephrology consulted for elevated BUN/Cr; patient noted to have CKD Stage 3a as per nephrology and recommended to follow up as an outpatient. Patient was seen and examined morning prior to discharge No acute events reported overnight; No complaints of SOB, CP, Palpitations, LE Pain, Abd Pain, Abnormal bleeding. Bleeding Patient was given the discharge instructions as below, Patient verbalized understanding of discharge instructions and follow up plan. Patient was seen, evaluated, and discussed w/ attending physician Dr. Bree Peralta prior to discharge. - Date & Time of H&P Date of H&P: 07/15/18 Time of H&P: 10:00 Discharge Exam - Head Exam Head Exam: ATRAUMATIC, NORMOCEPHALIC - Eye Exam Eye Exam: EOMI, Normal appearance, PERRL. absent: Scleral icterus - Respiratory Exam Respiratory Exam: Clear to PA & Lateral, NORMAL BREATHING PATTERN - Cardiovascular Exam Cardiovascular Exam: RRR. absent: Systolic Murmur - GI/Abdominal Exam GI & Abdominal Exam: Normal Bowel Sounds, Unremarkable - Extremities Exam Additional comments: RLE Erythema + Edema - significantly improved compared to day prior Chronic venostatic dermatitis BL Both legs w/ 2+ pedal pulses - Neurological Exam Neurological exam: Alert, CN II-XII Intact, Oriented x3 - Psychiatric Exam Psychiatric exam: Normal Affect, Normal Mood - Skin Skin Exam: Dry, Intact, Warm Discharge Plan - Discharge Medications Prescriptions: Apixaban [Eliquis] 5 mg PO BID #60 tablet Apixaban [Eliquis] 10 mg PO BID #22 tab Atorvastatin [Lipitor] 20 mg PO DAILY #30 tab Folic Acid 1 mg PO DAILY #30 tab - Follow Up Plan Condition: FAIR Disposition: HOME/ ROUTINE Instructions: Deep Vein Thrombosis (Blood Clots in the Legs), Pulmonary Embolism (Blood Clot in the Lungs) (DC) Additional Instructions: You were admitted for treatment and management of blood clots in your legs and lungs (DVT and PE); You were noted to have decreased kidney function during this admission (chronic kidney disease) Follow up with your primary doctor, Dr. Donaldson, within 3-5 days of discharge Follow up with your blood doctor (roll edge machine operator/ oncologist), Dr. Sterling,Tuesday or Tuesday. Follow up with your kidney doctor (hydroelectric station operator chief), Dr. Batres, within 1-2 weeks Follow up with your lung doctor (furniture mover), Dr. Benitez, within 2 weeks Follow up with alkylation operator (stomach doctor), Dr. Collins, for abnormal iron numbers within 1-2 weeks. Please let your doctor know that you will need lower extremity ultrasound and CT Angiography 3 months from now Start taking the following medications as directed below Eliquis STARTER PACK- please take as directed. 1 tablet twice a day. (once in the morning and once in the evening) PLEASE SKIP DAY 1 DOSE. Total number of days: 6 Total number of pills: 11 First date: 07/15/18 in the evening. Last date: 07/20/18 in the evening. Eliquis 5mg tablet 1 tablet twice a day. (once in the morning and once in the evening) Total number of days: 30 Total number of pills: 60 Start date: 07/21/18 in the morning Please note change in dosage Lipitor 80mg tablet every night Folic acid 1mg tab daily Continue taking your other home medications as previously prescribed YOU WERE STARTED ON ELIQUIS, A BLOOD THINNER, ELIQUIS CAN CAUSE INCREASED RISK OF BLEEDING Prior to any dental procedure or operative procedure please let your doctors know you are taking eliquis Do not run out of ELIQUIS. Refill your prescription before you run out. CALL YOUR DOCTOR OR GO TO THE NEAREST EMERGENCY ROOM IF YOU HAVE ANY SIGNS OR SYMPTOMS OF UNEXPECTED BLEEDING If your symptoms return or new concerning symptoms arise please go to the nearest emergency department immediately Referrals: Marty Batres MD [Staff Provider] - Endy Donaldson MD [Family Provider] - Zuleyka Sterling MD [Staff Provider] - Damian Bentiez MD [Staff Provider] - Cade Collins MD [Medical Doctor] - <Bree Peralta - Last Filed: 07/15/18 16:54> Provider - Provider Date of Admission: 07/11/18 21:20 Attending physician: Bree Peralta DO Consults: 07/12/18 07:45 Hematology Oncology Consult Routine Comment: Consulting Provider: Zuleyka Sterling Consulting Physician: Zuleyka Sterling Reason for Consult: Thrombocytopenia + DVT 07/12/18 09:24 Pulmonology Consult Routine Comment: Consulting Provider: Damian Benitez Consulting Physician: Damian Benitez Reason for Consult: Pulmonary Embolism 07/12/18 16:02 Physician Consult Routine Comment: Consulting Provider: Anton Galeano Consulting Physician: Anton Galeano Reason for Consult: IVC filter placement Additional Comments: 72 yo male with pmh of prostate CA, chronic back pain s/p multiple infusions, s/p pain management with implantation of nerve stimulator with recent development of RLE swelling and DVT noted to be right femoral vein and evidence of RML segmental non-occlusive PE. Patient noted to be mostly bed/couch bound secondary to chronic back pain and thus high risk for developing further DVT. Ab/Pelvis CT with oral and IV contrast ordered for further eval of clot. 07/12/18 16:23 Cardiology Consult Routine Comment: Consulting Provider: Anton Heard Consulting Physician: Anton Heard Reason for Consult: New onset LBBB; Reduced EF 07/14/18 10:22 Nephrology Consult Routine Comment: Consulting Provider: Marty Batres Consulting Physician: Marty Batres Reason for Consult: ckd Hospital Course - Lab Results Lab Results: Most Recent Lab Values WBC 5.2 10^3/uL (4.5-11.0) 07/15/18 07:00 RBC 4.56 10^6/uL (3.5-6.1) 07/15/18 07:00 Hgb 15.4 g/dL (14.0-18.0) 07/15/18 07:00 Hct 45.1 % (42.0-52.0) 07/15/18 07:00 MCV 98.9 fl (80.0-105.0) 07/15/18 07:00 MCH 33.8 pg (25.0-35.0) 07/15/18 07:00 MCHC 34.1 g/dl (31.0-37.0) 07/15/18 07:00 RDW 14.5 % (11.5-14.5) 07/15/18 07:00 Plt Count 84 10^3/uL (120.0-450.0) L 07/15/18 07:00 Manual Plt Count 91 K/mm3 (120-450) L 07/13/18 06:00 MPV 11.9 fl (7.0-11.0) H 07/15/18 07:00 Neut % (Auto) 63.9 % (50.0-68.0) 07/15/18 07:00 Lymph % (Auto) 26.6 % (22.0-35.0) 07/15/18 07:00 [place] % (Auto) 6.6 % (1.0-6.0) H 07/15/18 07:00 Eos % (Auto) 2.5 % (1.5-5.0) 07/15/18 07:00 Baso % (Auto) 0.4 % (0.0-3.0) 07/15/18 07:00 Lymph # (Auto) 1.4 (1.2-3.4) 07/15/18 07:00 [place] # (Auto) 0.3 (0.1-0.6) 07/15/18 07:00 Eos # (Auto) 0.1 (0.0-0.7) 07/15/18 07:00 Baso # (Auto) 0.02 K/mm3 (0.0-2.0) 07/15/18 07:00 Absolute Neuts (auto) 3.32 (1.4-6.5) 07/15/18 07:00 Differential Comment See pathology report 07/13/18 06:00 PT 12.9 SECONDS (9.4-12.5) H 07/11/18 20:17 INR 1.16 07/11/18 20:17 APTT 31.4 Seconds (26.9-38.3) 07/11/18 20:17 Protein C Activity 70 % (70-180) 07/12/18 12:00 Protein S Activity 73 % (70-150) 07/12/18 12:00 Factor VIII Activity 149 % (50-180) 07/12/18 12:00 Sodium 143 mmol/L (132-148) 07/15/18 07:00 Potassium 5.2 mmol/L (3.6-5.0) H 07/15/18 07:00 Chloride 105 mmol/L (98-107) 07/15/18 07:00 Carbon Dioxide 30 mmol/L (21-33) 07/15/18 07:00 Anion Gap 12 (10-20) 07/15/18 07:00 BUN 39 mg/dL (7-21) H 07/15/18 07:00 Creatinine 1.6 mg/dl (0.8-1.5) H 07/15/18 07:00 Est GFR ( Amer) 52 07/15/18 07:00 Est GFR (Non-Af Amer) 43 07/15/18 07:00 Random Glucose 85 mg/dL (70-110) 07/15/18 07:00 Hemoglobin A1c 5.4 % (4.2-6.5) 07/12/18 06:45 Calcium 9.3 mg/dL (8.4-10.5) 07/15/18 07:00 Iron 151 ug/dL (45-180) 07/14/18 13:00 TIBC 287 ug/dL (261-462) 07/14/18 13:00 % Saturation 53 % (20-55) 07/14/18 13:00 Ferritin 119.0 ng/mL 07/14/18 13:00 Total Bilirubin 1.2 mg/dL (0.2-1.3) 07/15/18 07:00 AST 72 U/L (17-59) H D 07/15/18 07:00 ALT 55 U/L (7-56) 07/15/18 07:00 Alkaline Phosphatase 51 U/L (38-126) 07/15/18 07:00 Troponin I 0.02 ng/mL D 07/11/18 19:58 Total Protein 7.7 g/dL (5.8-8.3) 07/15/18 07:00 Albumin 4.1 g/dL (3.0-4.8) 07/15/18 07:00 Globulin 3.6 gm/dL 07/15/18 07:00 Albumin/Globulin Ratio 1.2 (1.1-1.8) 07/15/18 07:00 Triglycerides 82 mg/dL (35-160) 07/12/18 06:45 Cholesterol 153 mg/dL (130-200) 07/12/18 06:45 LDL Cholesterol Direct 108 mg/dL (0-129) 07/12/18 06:45 HDL Cholesterol 27 mg/dL (29-60) L 07/12/18 06:45 Carcinoembryonic Ag 1.5 ng/mL (0.0-3.0) 07/12/18 12:00 CA 19-9 Antigen 4.4 U/mL (0-37) 07/12/18 12:00 Free PSA <0.1 ng/mL 07/12/18 12:00 % Free PSA Unable to calculate % (calc) (>25) 07/12/18 12:00 Total PSA <0.1 ng/mL (< or = 4.0) 07/12/18 12:00 Vitamin B12 408 pg/mL (239-931) 07/15/18 07:00 25-OH Vitamin D Total 33.7 NG/ML (30.0-100.0) 07/14/18 13:00 Folate > 20.0 ng/mL 07/15/18 07:00 Homocysteine 15.1 umol/L (6.6-14.8) H 07/12/18 12:00 Urine Color Yellow (YELLOW) 07/14/18 14:10 Urine Appearance Cloudy (CLEAR) 07/14/18 14:10 Urine pH 5.5 (4.7-8.0) 07/14/18 14:10 Ur Specific [place] 1.020 (1.005-1.035) 07/14/18 14:10 Urine Protein 30 mg/dL (<30 mg/dL) H 07/14/18 14:10 Urine Glucose (UA) Negative mg/dL (NEGATIVE) 07/14/18 14:10 Urine Ketones Negative mg/dL (NEGATIVE) 07/14/18 14:10 Urine Blood Small (NEGATIVE) H 07/14/18 14:10 Urine Nitrate Positive (NEGATIVE) H 07/14/18 14:10 Urine Bilirubin Negative (NEGATIVE) 07/14/18 14:10 Urine Urobilinogen 0.2 E.U./dL (<1 E.U./dL) 07/14/18 14:10 Ur Leukocyte Esterase Large Jaleesa/uL (NEGATIVE) H 07/14/18 14:10 Urine RBC 1 - 3 /hpf (0-2) H 07/14/18 14:10 Urine WBC Tntc /hpf (0-6) H 07/14/18 14:10 Ur Epithelial Cells None /hpf (0-5) 07/14/18 14:10 Urine Bacteria Large /hpf (NONE) 07/14/18 14:10 Ur Random Creatinine 103 mg/dL 07/14/18 14:10 U Random Total Protein 50 mg/L 07/14/18 14:10 WB Flow Cytometry Reference test 07/15/18 07:30 Attending/Attestation - Attestation I have personally seen and examined this patient.: Yes I have fully participated in the care of the patient.: Yes I have reviewed all pertinent clinical information, including history, physical exam and plan: Yes Notes (Text): Patient seen and examined by me with resident at approximately 9:25AM and prior to discharge on 07/15/18. Case including discharge plan discussed with resident. Agree with above with following additions/corrections. Patient is 72-year-old male with past medical history significant for prostate cancer status post prostatectomy, bilateral knee replacements, and chronic back pain that presented to the emergency room from his doctor's office for right lower extremity DVT found on ultrasound. Please see H&P for full details. Patient was found to have right lower extremity DVT, right middle lobe nonocclusive acute pulmonary embolism, dyspnea, thrombocytopenia, chronic kidney disease, chronic back pain, and depression and anxiety. CT abd/pelvis per radiologist showed no evidence of significant lymphadenopathy, bilateral renal calculi, left upper pole low density renal mass likely cortical cyst, no acute abnormality, nonspecific interstitial changes in the right lower lobe. CTA chest per radiologist showed right middle lobe segmental branch nonocclusive acute pulmonary emboli. Bilateral lower extremity venous dopplers per radiologist showed adherent hypoechoic acute thrombus in the distal right common femoral vein extending into the right femoral vein origin. Patient was seen by interventional radiologist did not recommend IVC filter placement or thrombectomy. Seen by hem/onc and furniture mover. It was recommended the patient be started on Eliquis. Risks including but not limited to increasde risk of bleeding discussed at length with patient. Patient understood and agreed to to take the medication. Lower extremity erythema resolved. CA-19-9 was 4.4. Total PSA was less than 0.1. Free PSA was less than 0.1. CEA was 1.5. 2-D echo was done and per professional golf tournament player showed left ventricle is normal size, boderline concentric left ventricular hypertrophy, systolic function is mildly imparied with EF of 45%, trace aortic regurgitation, mitral regurgitation is trace, trace tricuspid regurgitation, IVC is normal in size and collapses, no pericardial effusion, no vegetation or thrombus noted, transmitral doppler flow pattern is Grade III reversible restrictive diastolic dysfunction. Patient was evaluated by professional golf tournament player patient did not have a systolic or diastolic blood dysfunction. Patient is also deaf chronic thrombocytopenia. No signs of active bleeding. Patient was also found to have chronic kidney disease and was seen by hydroelectric station operator chief. Patient will need outpatient follow-up with hydroelectric station operator chief. Patient was also with elevated ferritin. Per her hydroelectric station operator chief, patient will need outpatient follow-up with GI. This was discussed with the patient. Patient was continued on Suboxone at home for chronic back pain. Patient was continued on Lexapro and Klonopin as needed for depression and anxiety. He was feeling much better. Patient was asking to go home. Patient was cleared for discharge by all consultants. He was discharged home. On day of discharge, patient stated he was feeling much better. Shortness of breath resolved. Patient was ambulating well. No leg pain. Patient states back pain is chronic and comes an goes. No chest pain or palpitations. No nausea, vomiting, or abdominal pain. No lightheadedness or dizziness. No headaches or change in vision. No fevers or chills. No dysuria. No diarrhea or constipation. Physical exam: General: Awake and alert lying in bed in no acute distress. HEENT: Normocephalic, atraumatic. Extraocular muscles intact, pupils equal and reactive, no scleral icterus. Oropharynx is pink and moist. No pharyngeal erythema or exudate appreciated. Neck is supple. Cardiovascular: Regular rhythm. Normal S1 and S2. No murmurs, rubs, or gallops appreciated Pulmonary: Normal respiratory effort. Decreased breath sounds at bases. No rhonchi, rales or wheezing appreciated. Gastrointestinal: Soft, nondistended. Nontender. Positive bowel sounds all 4 quadrants. No guarding. Musculoskeletal: Moves all extremities. Bilateral lower extremities with trace edema Central nervous system: AAOx3. CN 2-12 grossly inact Dermatologic: Skin warm and dry. Bilateral lower extremities with dry, scaly skin. Please see chart for full details. Follow up instructions: Patient to follow up with primary doctor, Dr. Donaldson, within 3-5 days of discharge. Patient to follow up with Dr. Sterling, within 2 weeks. Patient to follow with Dr. Batres within 1-2 weeks. Patient to follow up with your Dr. Benitez within 2 weeks. Patient to follow up with alkylation operator, Dr. Collins, for abnormal iron numbers within 1-2 weeks. Patient to take all medications as prescribed. All instructions explained to the patient in detail. Patient both understands and agrees to all instructions. Written instructions also given. Time spent in discharging the patient including chart review, medication reconciliation, discussion with the patient, medical imaging technologist, consultants, and nursing staff was approximately 45 minutes.
[2018-07-15 11:54] VITALS: BP 156/83; PULSE 52; TEMP 98.3; O2SAT 96
[2018-07-15 14:38] LABS: FOLATE > 20.0 ng/mL
--- NOTE | 2018-07-15 16:53 | PN ---
DATE: 07/15/2018 This is [facility] [place]'s hospital visit on the medical floor. For Dr. Sterling. SUBJECTIVE: The patient is a 72-year-old male anticipating discharge later this morning, reporting he feels better on admission with the patient known to have suffered from DVT with PE, now transitioned to Eliquis with prescription given by resident for continuation of his medication as an outpatient. The patient also is noted to have thrombocytopenic values which he reports he has had for years; however, this was now worked up with labs drawn this morning, which will now be pending with the patient to followup as an outpatient with Dr. Sterling in the office. He is otherwise feeling better, in no acute distress this visit. OBJECTIVE/ PHYSICAL EXAMINATION VITAL SIGNS: Temperature 98.3, pulse 52, respirations 20, blood pressure 156/83 and pulse ox 97%. HEENT: Unremarkable. NECK: Supple. HEART: Regular rate. LUNGS: Clear. ABDOMEN: Obese, soft, and nontender. EXTREMITIES: +1 edema, the right greater than left; however, the patient reports this is chronic. SKIN: Warm and dry. NEUROLOGIC: Awake and alert. LABORATORY DATA: The patient's labs were done. White blood cell count of 5.2, hemoglobin of 15.4, hematocrit of 45.1 with a platelet count of 84,000 today with a manual count of 91,000 two days prior. The patient's metabolic panel from earlier today showed a potassium of 5.2, BUN of 39, creatinine of 1.6 with an AST of 72. The patient did have a smear review pathology evaluation of his blood smear, which was read as platelets are markedly reduced, no clumping of platelets is present. No mature cells identified. ASSESSMENT: The assessment for this patient is that of right middle lobe pulmonary embolism, right lower extremity deep venous thrombosis, thrombocytopenia, history of cardiomyopathy, questionable mild renal insufficiency, history of prostate cancer, history of chronic back pain with disc fusion, history of spinal cord stimulator placement and carpal tunnel surgery. PLAN: The plan for this patient after conversation with Dr. Sterling is to continue his Eliquis 10 mg twice a day for 7 days and then will be transitioned to 5 mg twice a day afterwards with his thrombocytopenic workup pending including vitamin B12, folate including HIT testing, indirect platelet antibodies along with prothrombin gene analysis, antinuclear antibody. The patient was advised to followup early next week and to make sure his medicines do not run out for further recommendations and continuation of Eliquis as outpatient. This is a complex patient with a comprehensive medically necessary and appropriate visit carried out in excess of 40 minutes with the patient's questions answered to his satisfaction. Terry Goodson MD
== END 2018-07-15 14:29 | disposition home or self-care (01) | DRG 299 ==
LOC: ED 19:05 → ERH 21:20 → 3RNO 22:31
PROVIDERS: ADMIT Hospitalist; ATTEND Hospitalist
DX: I82.411 Acute embolism and thrombosis of right femoral vein (principal); I26.99 Other pulmonary embolism without acute cor pulmonale; I50.42 Chronic combined systolic (congestive) and diastolic (congestive) heart failure; I42.9 Cardiomyopathy, unspecified; N17.9 Acute kidney failure, unspecified; I13.0 Hypertensive heart and chronic kidney disease with heart failure and stage 1 through stage 4 chronic kidney disease, or unspecified chronic kidney disease; M54.9 Dorsalgia, unspecified; I44.7 Left bundle-branch block, unspecified; M48.061 Spinal stenosis, lumbar region without neurogenic claudication; D69.6 Thrombocytopenia, unspecified; M21.371 Foot drop, right foot; Z98.1 Arthrodesis status; Z92.21 Personal history of antineoplastic chemotherapy; Z85.46 Personal history of malignant neoplasm of prostate; Z92.3 Personal history of irradiation; Z87.442 Personal history of urinary calculi; Z87.891 Personal history of nicotine dependence; N18.3 Chronic kidney disease, stage 3 (moderate); F32.89 Other specified depressive episodes; F41.9 Anxiety disorder, unspecified; G89.29 Other chronic pain; H91.90 Unspecified hearing loss, unspecified ear; N20.0 Calculus of kidney; N28.89 Other specified disorders of kidney and ureter; Z79.01 Long term (current) use of anticoagulants; Z85.07 Personal history of malignant neoplasm of pancreas; Z90.79 Acquired absence of other genital organ(s); Z96.643 Presence of artificial hip joint, bilateral; Z96.653 Presence of artificial knee joint, bilateral